=== PATIENT | female | born 1985 | race African-American/Black ===

== ENCOUNTER 2017-01-04 13:32 | Inpatient (IN) | payer OTHER ==
[2017-01-04] MEDS ORDERED: Oxytocin in LR* 20 UNITS/1,000 ML BAG IVPB SCH (23:45)
[2017-01-05] MEDS ORDERED: Oxytocin in LR* 20 UNITS/1,000 ML BAG IVPB ONE (00:11)
[2017-01-05 00:41] LABS: Hematocrit 30 % (35-47); Hemoglobin 9.8 g/dl (12.0-16.0); Mean Corpuscular HGB Conc 32 g/dl (31-36); Mean Corpuscular Hemoglobin 27 pg (27-31); Mean Corpuscular Volume 84 fL (80-97); Mean Platelet Volume 9 um3 (7.4-10.4); Red Blood Count 3.64 10^6/ul (4.0-5.4); Red Cell Distribution Width 15 % (10.5-15); White Blood Count 11.2 10^3/ul (3.5-10.8)
[2017-01-05] MEDS ORDERED: fentaNYL* 50 MCG/ML 2 ML VIAL (100 MCG VIAL) ONE (01:47)
[2017-01-05] MEDS ORDERED: fentaNYL* 50 MCG/ML 2 ML VIAL (100 MCG VIAL) IV SLOW PU ONE (01:55)
[2017-01-05] MEDS ORDERED: Dibucaine 1% 28.35 GM TUBE PR PRN (03:31)
[2017-01-05] MEDS ORDERED: Witch Hazel PAD* JAR TOPICAL PRN (03:31)
[2017-01-05] MEDS ORDERED: Acetaminophen TAB* 325 MG PO PRN (03:31)
[2017-01-05] MEDS ORDERED: Ibuprofen TAB* 600 MG ONE (03:58)
[2017-01-05] MEDS: Ibuprofen TAB* 600 MG PO PRN ×3 (04:00→20:11)
[2017-01-05] MEDS ORDERED: Oxytocin in LR* 20 UNITS/1,000 ML BAG IVPB SCH (04:00)
[2017-01-05] MEDS: oxyCODONE/Acetamin 5/325 MG* TAB PO PRN (04:56)
[2017-01-05] MEDS: Docusate CAP* 100 MG PO SCH ×3 (09:21→20:11)
[2017-01-05] MEDS ORDERED: Phenylephrine IV* 40 MCG/ML 10 ML SYRINGE ONE (13:51)
[2017-01-05] MEDS: Ferrous Gluconate TAB* 324 MG TAB PO SCH (20:11)
[2017-01-06] MEDS: Ibuprofen TAB* 600 MG PO PRN ×3 (03:53→21:46)
[2017-01-06] MEDS: Docusate CAP* 100 MG PO SCH ×3 (08:30→21:46)
[2017-01-06] MEDS: Ferrous Gluconate TAB* 324 MG TAB PO SCH ×2 (08:30→21:46)
[2017-01-06 08:38] LABS: Hematocrit 28 % (35-47); Hemoglobin 9.1 g/dl (12.0-16.0); Mean Corpuscular HGB Conc 33 g/dl (31-36); Mean Corpuscular Hemoglobin 28 pg (27-31); Mean Corpuscular Volume 84 fL (80-97); Mean Platelet Volume 9 um3 (7.4-10.4); Red Blood Count 3.28 10^6/ul (4.0-5.4); Red Cell Distribution Width 15 % (10.5-15); White Blood Count 10.4 10^3/ul (3.5-10.8)
[2017-01-06] MEDS: oxyCODONE/Acetamin 5/325 MG* TAB PO PRN (17:43)
[2017-01-07] MEDS: Ibuprofen TAB* 600 MG PO PRN (06:26)
[2017-01-07] MEDS: oxyCODONE/Acetamin 5/325 MG* TAB PO PRN (06:27)
[2017-01-07] MEDS: Docusate CAP* 100 MG PO SCH (09:15)
[2017-01-07] MEDS: Ferrous Gluconate TAB* 324 MG TAB PO SCH (09:15)
[2017-01-07 09:20] VITALS: BP 122/70
== END 2017-01-07 12:49 | disposition home or self-care (01) | DRG 560 ==
LOC: MCHOBOUT 13:32 → MCHOB 18:58
PROVIDERS: ADMIT Nurse Practitioner; ATTEND Nurse Practitioner
PROC: 10E0XZZ Delivery of Products of Conception, External Approach (ICD-10-PCS; principal; 2017-01-05)
PROC: 0HQ9XZZ Repair Perineum Skin, External Approach (ICD-10-PCS; 2017-01-05)
DX: O70.0 First degree perineal laceration during delivery (principal); Z37.0 Single live birth; Z3A.38 38 weeks gestation of pregnancy
CPT/HCPCS: 36415; 85025; 86850; 86900; 86901; A9270-GY; J3010

== ENCOUNTER → 2017-04-28 17:56 | Emergency (ER) | payer MEDICAID, OTHER ==
[2017-04-28 18:21] VITALS: BP 119/81
--- NOTE | 2017-04-28 19:27 | ED ---
Throat Pain/Nasal Congestion - HPI Summary HPI Summary: 31F presents with itchy watery eyes for 4 days. She had crusted the one eye and then it spread to another. Her children have similar symptoms. She denies any change in vision. She does not wear contacts. She denies any other symptoms. - History of Current Complaint Chief Complaint: EDEyeProblem Time Seen by Provider: 04/28/17 18:24 - Allergies/Home Medications Allergies/Adverse Reactions: Allergies Allergy/AdvReac Type Severity Reaction Status Date / Time Iohexol [From Omnipaque] Allergy Mild Hives Verified 01/04/17 14:17 PMH/Surg Hx/FS Hx/Imm Hx Endocrine/Hematology History: Denies: Hx Diabetes, Hx Thyroid Disease Cardiovascular History: Denies: Hx Aneurysm, Hx Hypertension Respiratory History: Denies: Hx Asthma, Hx Chronic Obstructive Pulmonary Disease (COPD) GI History: Denies: Hx Ulcer - Surgical History Surgery Procedure, Year, and Place: GALL BLADDER REMOVED 2013 Infectious Disease History: No Infectious Disease History: Denies: Hx Clostridium Difficile, Hx Hepatitis, Hx Human Immunodeficiency Virus (HIV), Hx of Known/Suspected MRSA, Hx Shingles, Hx Tuberculosis, Hx Known/ Suspected VRE, Hx Known/Suspected VRSA, History Other Infectious Disease, Traveled Outside the [place] in Last 30 Days - Family History Known Family History: Positive: Cardiac Disease, Hypertension, Diabetes - Social History Alcohol Use: None Alcohol Amount: not recently Substance Use Type: Reports: None Smoking Status (MU): Never Smoked Tobacco Review of Systems Negative: Fever Positive: Drainage, Erythema Negative: Chest Pain Negative: Shortness Of Breath All Other Systems Reviewed And Are Negative: Yes Physical Exam Triage Information Reviewed: Yes Vital Signs On Initial Exam: Initial Vitals Temp Pulse Resp BP Pulse Ox 97.9 F 78 16 119/81 98 04/28/17 18:15 04/28/17 18:15 04/28/17 18:15 04/28/17 18:15 04/28/17 18:15 Vital Signs Reviewed: Yes Appearance: Positive: Well-Appearing Skin: Positive: Warm, Dry Head/Face: Positive: Normal Head/Face Inspection Eyes: Positive: EOMI, DAQUAN, Conjunctiva Inflammed, Discharge - yellow ENT: Positive: Normal ENT inspection, Pharynx normal, TMs normal Respiratory/Lung Sounds: Positive: Clear to Auscultation, Breath Sounds Present Cardiovascular: Positive: Normal, RRR Diagnostics - Vital Signs Vital Signs Temp Pulse Resp BP Pulse Ox 04/28/17 18:15 97.9 F 78 16 119/81 98 - Laboratory Lab Statement: Any lab studies that have been ordered have been reviewed, and results considered in the medical decision making process. EENT Course/Dx - Course Course Of Treatment: 31F presents with itchy watery eyes for 4 days. She had crusted the one eye and then it spread to another. Her children have similiar symptoms. She denies any change in vision. She does not wear contacts. She denies any other symptoms. patient has injected conjunctiva with yellow discharge. will treat with erythromycin as adi was out of polytrim. patient understands and agrees with plan - Differential Diagnoses Differential Diagnoses: Conjunctivitis, Corneal Abrasion, Foreign Body - Diagnoses Provider Diagnoses: Conjunctivitis Discharge - Discharge Plan Condition: Good Disposition: HOME Prescriptions: Polymyx/Trimethoprim OPTH* [Polytrim OPHTH*] 1 drop BOTH EYES Q3H #1 btl Patient Education Materials: Conjunctivitis (ED) Referrals: Nata Ortiz MD [Primary Care Provider] - Additional Instructions: Place 1 drop in eye four times a day for 7 days Wash hands after touching eye Return to ED if develop any new or worsening symptoms
== END | disposition home or self-care (01) ==
LOC: ED 17:56
DX: H10.9 Unspecified conjunctivitis (principal)
CPT/HCPCS: 99281

== ENCOUNTER 2017-05-05 09:15 | Emergency (ER) | payer MEDICAID ==
[2017-05-05 09:19] VITALS: BP 137/92
[2017-05-05] MEDS ORDERED: oxyCODONE/Acetamin 5/325 MG* TAB PO ONE ×2 (10:08)
[2017-05-05] MEDS ORDERED: Tetan/Diph/Pertus SYR(Tdap)* 0.5 ML SYR(BOOSTRIX) use SYR IM ONE (10:09)
--- NOTE | 2017-05-05 10:15 | ED ---
Throat Pain/Nasal Congestion - HPI Summary HPI Summary: Pt here w/ Lt eye injury last night - daughter accidentally poked her in the eye - pain interfered with sleep last night. Eyes has been watering, sensitive to light and pain with opening. She is unsure if vision has changes as she's very anxious about the pain. Tried ibuprofen w/o relief prior to arrival. She is unsure of her last tetanus vaccine and nothing in record here. Does not wear contact lenses. - History of Current Complaint Chief Complaint: EDEyeProblem Time Seen by Provider: 05/05/17 09:46 Hx Obtained From: Patient - Allergies/Home Medications Allergies/Adverse Reactions: Allergies Allergy/AdvReac Type Severity Reaction Status Date / Time Iohexol [From Omnipaque] Allergy Mild Hives Verified 01/04/17 14:17 PMH/Surg Hx/FS Hx/Imm Hx Previously Healthy: Yes Endocrine/Hematology History: Denies: Hx Anticoagulant Therapy, Hx Blood Disorders, Hx Diabetes, Hx Thyroid Disease, Autoimmune Disease Cardiovascular History: Denies: Hx Aneurysm, Hx Hypertension Respiratory History: Denies: Hx Asthma, Hx Chronic Obstructive Pulmonary Disease (COPD) GI History: Denies: Hx Ulcer Psychiatric History: Reports: Hx Anxiety - Surgical History Surgery Procedure, Year, and Place: GALL BLADDER REMOVED 2013 - Immunization History Immunizations Up to Date: Unable to Obtain/Confirm Infectious Disease History: No Infectious Disease History: Denies: Hx Clostridium Difficile, Hx Hepatitis, Hx Human Immunodeficiency Virus (HIV), Hx of Known/Suspected MRSA, Hx Shingles, Hx Tuberculosis, Hx Known/ Suspected VRE, Hx Known/Suspected VRSA, History Other Infectious Disease, Traveled Outside the [place] in Last 30 Days - Family History Known Family History: Positive: Cardiac Disease, Hypertension, Diabetes - Social History 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 Lives: With Family Alcohol Use: None Alcohol Amount: not recently Hx Substance Use: No Substance Use Type: Reports: None Hx Tobacco Use: No Smoking Status (MU): Never Smoked Tobacco Review of Systems Eyes: Other - see HPI Negative: Vomiting, Nausea Positive: no symptoms reported Positive: Headache - from eye pain Positive: Anxious All Other Systems Reviewed And Are Negative: Yes Physical Exam Triage Information Reviewed: Yes Vital Signs On Initial Exam: Initial Vitals Temp Pulse Resp BP Pulse Ox 97.1 F 86 20 137/92 96 05/05/17 09:17 05/05/17 09:17 05/05/17 09:17 05/05/17 09:17 05/05/17 09:17 Vital Signs Reviewed: Yes Appearance: Positive: Well-Appearing, Well-Nourished, Pain Distress - tearful, apprehensive to allow eye exam, anxious Skin: Positive: Warm, Dry Head/Face: Positive: Normal Head/Face Inspection Eyes: Positive: EOMI, DAQUAN, Conjunctiva Inflammed - mild, Discharge - watery, Other: - fluouresceine eye test reveals a 3mm abrasion within central cornea - no linear abrasions observed and no FB obsreved - neg Siedel's sign; no purulent d/c ENT: Positive: Normal ENT inspection, Hearing grossly normal, Pharynx normal Respiratory/Lung Sounds: Positive: Breath Sounds Present Cardiovascular: Positive: Normal Neurological: Positive: CN Intact II-III Psychiatric: Positive: Anxious Procedures - Eye Procedure Alcaine Drops Administered: No - tetracaine Eye Irrigated w/ Saline (ccs): 3 - saline Antibiotic Ointment/Drps Admin: left eye - gentamycin 0.3% Diagnostics - Vital Signs Vital Signs Temp Pulse Resp BP Pulse Ox 05/05/17 09:17 97.1 F 86 20 137/92 96 - Laboratory Lab Statement: Any lab studies that have been ordered have been reviewed, and results considered in the medical decision making process. Re-Evaluation - Re-Evaluation First Eval Change: Improved - s/p tetracaine eye drops EENT Course/Dx - Diagnoses Provider Diagnoses: Left corneal abrasion Discharge - Discharge Plan Condition: Stable Disposition: HOME Prescriptions: Diclofenac Sodium (Ophth) [Diclofenac Sodium] 0.1 % OP Q6HR PRN #1 bottle PRN Reason: Pain Gentamicin 0.3% OPTH.OINT* 1 applic .SEE ORDER TID #1 tube Patient Education Materials: Corneal Abrasion (ED) Forms: *Work Release Referrals: Олег Ni MD [Medical Doctor] - Additional Instructions: You have a corneal abrasion. It is important that you keep this eye closed and use antibiotic eye ointment to aid in healing and prevent infection. This should heal in the next 24-48 hours. You may use topical eye drops for pain relief (sent to pharmacy). You may take oral pain pill (percocet) before bed tonight if pain interferes with sleep. Follow-up with eye doctor tomorrow - contact information included here - call today to schedule appointment.
[2017-05-05] MEDS: GENTAMICIN 0.1% TOPICAL ONE ×2 (10:58→11:44)
[2017-05-05] MEDS ORDERED: Gentamicin 0.3% OPTH.OINT* 3.5 GM TUBE ONE (11:00)
== END 2017-05-05 11:08 | disposition home or self-care (01) ==
LOC: ED 09:15
DX: S05.02XA Injury of conjunctiva and corneal abrasion without foreign body, left eye, initial encounter (principal); R51 Headache; F41.9 Anxiety disorder, unspecified; W50.0XXA Accidental hit or strike by another person, initial encounter; Y93.9 Activity, unspecified; Y92.89 Other specified places as the place of occurrence of the external cause; Y99.9 Unspecified external cause status
CPT/HCPCS: 90471; 90715; 99282; A9270-GY

== ENCOUNTER 2018-09-12 15:32 | Emergency (ER) | payer OTHER ==
--- NOTE | 2018-09-12 15:49 | ED ---
Abdominal Pain/Female - HPI Summary HPI Summary: A 33 y/o F presents to ED with c/o severe constipation ongoing for the past few months. Pt states she saw her PCP about this issue and was referred to a GI specialist at [facility] but she isn't scheduled to see them until next week. She states feeling like she is going to "puke up her bowels." Her last BM was yesterday afternoon after taking one dose of magnesium citrate. She states when she does have a BM it feels incomplete. She feels the urge to push but is worried about it. Associated sx: nausea, bloating, pressure on bilat sides, she feels faint like she may pass out. She has tried an at-home enema, laxatives, Miralax (1 dose), a high fiber diet of mostly vegetables. She says she hydrates regularly and is not a heavy coffee drinker. She says her menstrual cycle is normal. Denies taking pain narcotics. She notes its common for her (and other family members) to only have a BM 2x a month. 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 - History of Current Complaint Chief Complaint: EDAbdPain Stated Complaint: CONSTIPATION Time Seen by Provider: 09/12/18 15:39 Hx Obtained From: Patient Hx Last Menstrual Period: 04/03/16 Onset/Duration: Gradual Onset, Lasting Weeks, Still Present Timing: Constant Severity Initially: Moderate Severity Currently: Severe Pain Intensity: 8 Pain Scale Used: 0-10 Numeric Location: Other - bilat sides of abd Character: Other: - pressure Associated Signs and Symptoms: Positive: Nausea, Other: - pos: feeling "faint", bloating Allergies/Adverse Reactions: Allergies Allergy/AdvReac Type Severity Reaction Status Date / Time iohexol Allergy Hives Verified 09/12/18 15:37 Home Medications: Home Medications Etonogest/Eth.estradiol (Nf) [Nuvaring Vaginal Ring] 1 each VAGINAL MONTHLY [History Confirmed 09/12/18] Folic Acid/Multivit-Min/Lutein [Multi-Vitamin Gummies] 1 chw PO DAILY 09/12/18 [ History Confirmed 09/12/18] Sennosides/Docusate Sodium [Lax Stool Softener-Senna Tab] 1 tab PO DAILY PRN [History Confirmed 09/12/18] Sennosides/Docusate Sodium [Stool Softener/Laxative 50-8.6 mg] 1 tab PO DAILY PRN 09/12/18 [History Confirmed 09/12/18] Sodium Phosphate ADULT ENEMA* [Fleet Enema*] [address] DAILY PRN 09/12/18 [ History Confirmed 09/12/18] PMH/Surg Hx/FS Hx/Imm Hx Previously Healthy: No Endocrine/Hematology History: Denies: Hx Anticoagulant Therapy, Hx Blood Disorders, Hx Diabetes, Hx Thyroid Disease Cardiovascular History: Denies: Hx Aneurysm, Hx Hypertension Respiratory History: Denies: Hx Asthma, Hx Chronic Obstructive Pulmonary Disease (COPD) GI History: Denies: Hx Ulcer Psychiatric History: Reports: Hx Anxiety - Surgical History Surgery Procedure, Year, and Place: GALL BLADDER REMOVED 2013 Infectious Disease History: Unable to Obtain/Confirm Infectious Disease History: Denies: Hx Clostridium Difficile, Hx Hepatitis, Hx Human Immunodeficiency Virus (HIV), Hx of Known/Suspected MRSA, Hx Shingles, Hx Tuberculosis, Hx Known/ Suspected VRE, Hx Known/Suspected VRSA, History Other Infectious Disease, Traveled Outside the [place] in Last 30 Days - Family History Known Family History: Positive: Cardiac Disease, Hypertension, Diabetes Family History: neg: IBS, Crohns - Social History Occupation: Unemployed Lives: With Family Alcohol Use: None Alcohol Amount: not recently Hx Substance Use: No Substance Use Type: Reports: None Hx Tobacco Use: No Smoking Status (MU): Never Smoked Tobacco Review of Systems Negative: Fever, Chills Negative: Erythema Negative: Sore Throat Negative: Chest Pain Negative: Shortness Of Breath, Cough Positive: Abdominal Pain - "pressure" on bilat sides, Nausea, Other - pos: constipation, bloating. Negative: Vomiting Negative: dysuria, hematuria Negative: Myalgia, Edema Negative: Rash Neurological: Other - pos: feeling "faint"; neg: dizziness All Other Systems Reviewed And Are Negative: Yes Physical Exam - Summary Physical Exam Summary: Constitutional: Well-developed, Well-nourished, Alert. (-) Distressed Skin: Warm, Dry HENT: Normocephalic; Atraumatic Eyes: Conjunctiva normal Neck: Musculoskeletal ROM normal neck. (-) JVD, (-) Stridor, (-) Tracheal deviation Cardio: Rhythm regular, rate normal, Heart sounds normal; Intact distal pulses; The pedal pulses are 2+ and symmetric. Radial pulses are 2+ and symmetric. (-) Murmur Pulmonary/Chest wall: Effort normal. (-) Respiratory distress, (-) Wheezes, (-) Rales Abd: Soft, (-) epigastric tenderness, (-) Distension, (-) Guarding, (-) Rebound Musculoskeletal: (-) Edema Lymph: (-) Cervical adenopathy Neuro: Alert, Oriented x3 Psych: Mood and affect Normal Triage Information Reviewed: Yes Vital Signs On Initial Exam: Initial Vitals Temp Pulse Resp BP Pulse Ox 97.7 F 82 16 135/98 100 09/12/18 15:33 09/12/18 15:33 09/12/18 15:33 09/12/18 15:33 09/12/18 15:33 Vital Signs Reviewed: Yes Diagnostics - Vital Signs Vital Signs Temp Pulse Resp BP Pulse Ox 09/12/18 15:33 97.7 F 82 16 135/98 100 - Laboratory Lab Statement: Any lab studies that have been ordered have been reviewed, and results considered in the medical decision making process. Abdominal Pain Fem Course/Dx - Course Course Of Treatment: Pt is a 33 y/o F presenting with ongoing severe constipation. She is scheduled to see a GI specialist at [facility] next week. She states feeling like she is going to "puke up her bowels." She did have a BM yesterday after a dose of magnesium citrate, but did not completely void her bowels. Pt has been non-compliant with her laxitives. Advised to discontinue all cheese intake, and recommended other dietary changes. - Diagnoses Provider Diagnoses: Constipation Discharge - Sign-Out/Discharge Documenting (check all that apply): Patient Departure - DC - Discharge Plan Condition: Stable Disposition: HOME Prescriptions: Magnesium CITRATE* [Citrate of Magnesia*] 150 ml PO BID #3 btl Polyethylene Glycol 3350* [Miralax*] 17 gm PO DAILY PRN #7 packet PRN Reason: Constipation Patient Education Materials: Polyethylene Glycol 3350 (By mouth), Magnesium Citrate (By mouth), Constipation (ED) Referrals: Nata Ortiz MD [Primary Care Provider] - 2 Days Additional Instructions: As we discussed: Add fruit to your diet. Continue eating vegetables. Drink prune and/or apple juice. Stop eating cheese. Follow up with your primary care provider in 2 days. Return to the emergency department for changing or worsening symptoms. - Attestation Statements Document Initiated by Scribe: Yes Documenting Scribe: Meagan Baig Provider For Whom Scribe is Documenting (Include Credential): Dr. Rahul Luna MD Scribe Attestation: IMeagan, scribed for Dr. Rahul Luna MD on 09/12/18 at 1701.
[2018-09-12] MEDS ORDERED: Polyethylene Glycol 3350* 17 GM PACKET PO ONE (15:52)
[2018-09-12] MEDS ORDERED: Ondansetron ODT TAB* 4 MG PO ONE (15:53)
[2018-09-12 17:13] VITALS: BP 122/97
== END 2018-09-12 17:13 | disposition home or self-care (01) ==
LOC: ED 15:32
DX: K59.00 Constipation, unspecified (principal); R10.9 Unspecified abdominal pain; R11.0 Nausea
CPT/HCPCS: 99283; A9270-GY

== ENCOUNTER 2018-09-18 10:06 | Emergency (ER) | payer OTHER ==
--- NOTE | 2018-09-18 10:24 | ED ---
Abdominal Pain/Female - HPI Summary HPI Summary: This patient is a 33 year old F presenting to [facility] with a chief complaint of ABD pain that began a few months ago but has gotten worse. Patient states she was recently seen in the ED and discharged with a laxative that she has been taking without relief. She is concerned because no imaging was done. She states it started with ABD pressure and constipation. Since then the pain has increased , especially in the LLQ, and it now radiates into her back. She has passed stool since her last visit but did not feel like it was a full void, last BM was 3 days ago. The patient rates the pain 8/10 in severity. Symptoms aggravated by eating. Patient reports nausea and trouble passing gas. Patient denies vomiting, vaginal discharge, and vaginal bleeding. Pt has taken magnesium citrate and miralax. Hx cholecystectomy. - History of Current Complaint Chief Complaint: EDAbdPain Stated Complaint: ABD PAIN Time Seen by Provider: 09/18/18 10:17 Hx Obtained From: Patient Hx Last Menstrual Period: 04/03/16 Onset/Duration: Lasting Days, Still Present, Worse Since Timing: Constant Severity Initially: Mild Severity Currently: Severe Pain Intensity: 8 Pain Scale Used: 0-10 Numeric Location: Diffuse Radiates: Yes Radiates to: Back Aggravating Factor(s): Food Associated Signs and Symptoms: Positive: Nausea. Negative: Vaginal Bleeding, Vaginal Discharge, Vomiting Allergies/Adverse Reactions: Allergies Allergy/AdvReac Type Severity Reaction Status Date / Time Iodinated Contrast- Oral and Allergy Hives Verified 09/18/18 11:15 IV Dye iohexol Allergy Hives Verified 09/18/18 10:15 PMH/Surg Hx/FS Hx/Imm Hx Endocrine/Hematology History: Denies: Hx Anticoagulant Therapy, Hx Blood Disorders, Hx Diabetes, Hx Thyroid Disease Cardiovascular History: Denies: Hx Aneurysm, Hx Hypertension Respiratory History: Denies: Hx Asthma, Hx Chronic Obstructive Pulmonary Disease (COPD) GI History: Denies: Hx Crohn's Disease, Hx Gastrointestinal Bleed, Hx Hiatal Hernia, Hx Irritable Bowel, Hx Ulcer Psychiatric History: Reports: Hx Anxiety - Surgical History Surgery Procedure, Year, and Place: GALL BLADDER REMOVED 2013 Infectious Disease History: No Infectious Disease History: Denies: Hx Clostridium Difficile, Hx Hepatitis, Hx Human Immunodeficiency Virus (HIV), Hx of Known/Suspected MRSA, Hx Shingles, Hx Tuberculosis, Hx Known/ Suspected VRE, Hx Known/Suspected VRSA, History Other Infectious Disease, Traveled Outside the [place] in Last 30 Days - Family History Known Family History: Positive: Cardiac Disease, Hypertension, Diabetes Family History: neg: IBS, Crohns - Social History Alcohol Use: None Alcohol Amount: not recently Hx Substance Use: No Substance Use Type: Reports: None Hx Tobacco Use: No Smoking Status (MU): Never Smoked Tobacco Review of Systems Gastrointestinal: Other - trouble passing gas Positive: Abdominal Pain, Nausea, Other - constipation . Negative: Vomiting, Diarrhea Genitourinary: Negative - vaginal bleeding Negative: discharge All Other Systems Reviewed And Are Negative: Yes Physical Exam - Summary Physical Exam Summary: Appearance: Well appearing, no pain distress Skin: warm, dry, reflects adequate perfusion Head/face: normal Eyes: EOMI, DAQUAN ENT: normal Neck: supple, non-tender Respiratory: CTA, breath sounds present Cardiovascular: RRR, pulses symmetrical Abdomen: TTP in the LLQ and LUQ Bowel: present Musculoskeletal: normal, strength/ROM intact Neuro: normal, sensory motor intact, A&Ox3 Rectal: No fecal impaction Triage Information Reviewed: Yes Vital Signs On Initial Exam: Initial Vitals Temp Pulse Resp BP Pulse Ox 98.1 F 81 17 130/80 100 09/18/18 10:09 09/18/18 10:09 09/18/18 10:09 09/18/18 10:09 09/18/18 10:09 Vital Signs Reviewed: Yes Diagnostics - Vital Signs Vital Signs Temp Pulse Resp BP Pulse Ox 09/18/18 10:09 98.1 F 81 17 130/80 100 - Laboratory Result Diagrams: 09/18/18 10:37 09/18/18 10:37 Lab Statement: Any lab studies that have been ordered have been reviewed, and results considered in the medical decision making process. - CT CT ABD/ Pelvis CT Interpretation Completed By: Radiologist - No obstructive uropathy. No other masses or fluid collections are identified. ED physician has reviewed this radiology report. Abdominal Pain Fem Course/Dx - Course Course Of Treatment: This patient is a 33 year old female with worsening ABD pain that began a month or so ago. She was seen in the ED a few days ago but was concerned because no imaging was done. Patient will be discharged follow up from GI and PCP. The patient is agreeable with this plan. Blood work and UA obtained. CT ABD/Pelvis reveals, per radiologist, No obstructive uropathy. No other masses or fluid collections are identified. Patient will be discharged follow up from GI and PCP. The patient is agreeable with this plan. - Diagnoses Differential Diagnosis: Positive: Constipation, Diverticulitis, Renal Colic, Urinary Tract Infection Provider Diagnoses: Abdominal pain, Constipation Discharge - Sign-Out/Discharge Documenting (check all that apply): Patient Departure - Discharge Plan Condition: Stable Disposition: HOME Patient Education Materials: Constipation (ED), High Fiber Diet (ED), Acute Abdominal Pain (ED) Referrals: [facility] [place] PHYSICIAN REFERRAL [Outside] Nata Ortiz MD [Primary Care Provider] - Additional Instructions: Please keep you appointment with GI this week. Follow up with your primary care physician in 1-3 days. RETURN TO THE EMERGENCY DEPARTMENT FOR CHANGING OR WORSENING SYMPTOMS. - Billing Disposition and Condition Condition: STABLE Disposition: Home - Attestation Statements Document Initiated by Scribe: Yes Documenting Scribe: Anderson Echavarria Provider For Whom Scribe is Documenting (Include Credential): Kulwant Hamilton MD Scribe Attestation: Anderson Siddiqui , scribed for Kulwant Hamilton MD on 09/18/18 at 1324. Scribe Documentation Reviewed: Yes Provider Attestation: The documentation as recorded by the Anderson baltazar accurately reflects the service I personally performed and the decisions made by Kulwant aruajo MD
[2018-09-18] MEDS ORDERED: NS 0.9% 1000 ML* 1,000 ML IV ONE (10:26)
[2018-09-18 10:49] LABS: ABS Basophils 0.1 10^3/ul (0-0.2); ABS Eosinophils 0.1 10^3/ul (0-0.6); ABS Lymphocytes 2.8 10^3/ul (1.0-4.8); ABS Monocytes 0.3 10^3/ul (0-0.8); ABS Neutrophils 2.1 10^3/ul (1.5-7.7); ABS Nucleated RBC 0 10^3/ul; Eosinophil % 1.6 % (0-6); Hematocrit 39 % (35-47); Hemoglobin 12.6 g/dl (12.0-16.0); Lymphocyte % 52.4 % (25-47); Mean Corpuscular HGB Conc 33 g/dl (31-36); Mean Corpuscular Hemoglobin 28 pg (27-31); Mean Corpuscular Volume 84 fL (80-97); Mean Platelet Volume 8.5 fL (7.4-10.4); Nucleated Red Blood Cells % 0.1; Platelet Count 288 10^3/ul (150-450); Red Blood Count 4.58 10^6/ul (4.00-5.40); Red Cell Distribution Width 13 % (10.5-15); White Blood Count 5.3 10^3/ul (3.5-10.8)
[2018-09-18 10:58] LABS: INR 0.9 (0.77-1.02)
[2018-09-18 11:05] LABS: EGFR Non-African American 90.4 (>60)
[2018-09-18 11:40] LABS: Urine Appearance Clear; Urine Blood Negative (Negative); Urine Color Straw; Urine Ketones Negative (Negative); Urine Protein Negative (Negative); Urine Red Blood Cell 1+(3-5/hpf) (Absent); Urine Specific Gravity 1.004 (1.010-1.030); Urine Urobilinogen Negative (Negative); Urine White Blood Cell 1+(6-10/hpf) (Absent)
[2018-09-18] MEDS ORDERED: Sodium Phosphate ADULT ENEMA* 118 ml bottle PR ONE (12:11)
[2018-09-18 13:16] VITALS: BP 115/82
--- NOTE | 2018-09-21 08:32 | ED ---
Progress - Progress Note Progress Note: Patient's final urine culture reveals 50-75,000 Escherichia coli. Patient had presented with abdominal pain and constipation and was discharged with laxatives and a GI follow-up. Upon speaking to patient, she reports she is moving her bowels easier with the mag citrate and MiraLAX however she still has abdominal discomfort and plans to follow through with her GI appointment this week. Furthermore she admits to a history of UTI's and was recently seen at her primary care office 2 weeks ago. She was diagnosed with bacterial vaginosis and given anbx vaginal suppositories which seemed to have helped her vaginal symptoms although she reports she may have some lingering or other symptoms remnant of a UTI (she is unable to specify and denies dysuria, urinary frequency, urinary urgency). She admits to LBP but reports this is constant and not new w/ her current ab sx. She prefers to start treatment for UTI today versus waiting to repeat UA through her PCP. Sensitivities indicate ciprofloxacin is effective so prescribed this for 3 days to Jp Smith. Patient advised to follow-up with GI as initially scheduled and report symptoms after starting antibiotic in the event that her symptoms are actually UTI. She is also aware of danger signs and symptoms of when to return the emergency Department. Course/Dx - Course Course Of Treatment: This patient is a 33 year old female with worsening ABD pain that began a month or so ago. She was seen in the ED a few days ago but was concerned because no imaging was done. Patient will be discharged follow up from GI and PCP. The patient is agreeable with this plan. Blood work and UA obtained. CT ABD/Pelvis reveals, per radiologist, No obstructive uropathy. No other masses or fluid collections are identified. Patient will be discharged follow up from GI and PCP. The patient is agreeable with this plan. - Diagnoses Provider Diagnoses: Abdominal pain, Constipation Discharge - Sign-Out/Discharge Documenting (check all that apply): Post-Discharge Follow Up - Discharge Plan Condition: Stable Disposition: HOME Patient Education Materials: Constipation (ED), High Fiber Diet (ED), Acute Abdominal Pain (ED) Referrals: [facility] [place] PHYS[facility]IAN REFERRAL [Outside] Nata Ortiz MD [Primary Care Provider] - Additional Instructions: Please keep you appointment with GI this week. Follow up with your primary care physician in 1-3 days. RETURN TO THE EMERGENCY DEPARTMENT FOR CHANGING OR WORSENING SYMPTOMS. - Billing Disposition and Condition Condition: STABLE Disposition: Home
== END 2018-09-18 13:15 | disposition home or self-care (01) ==
LOC: ED 10:06
DX: R10.9 Unspecified abdominal pain (principal); K59.00 Constipation, unspecified
CPT/HCPCS: 36415; 74176; 80053; 81003; 81015; 83605; 83690; 84702; 85025; 85610; 85730; 86140; 87077; 87086; 87186; 96360; 96361; 99283; A9270-GY

== ENCOUNTER 2019-08-27 02:20 | Emergency (ER) | payer OTHER ==
[2019-08-27] MEDS ORDERED: NS 0.9% 1000 ML** 1,000 ML IV ONE (02:29)
--- NOTE | 2019-08-27 02:33 | ED ---
Complex/Multi-Sys Presentation - HPI Summary HPI Summary: Patient is a 34 y/o F presenting to [facility] with complaints of left-sided body weakness, left arm numbness and left hand tingling. She reports that Sx onset around 0200 08/27/2019. She states that she has never had similar previous symptoms. Patient states that she has some "fuzziness" of her vision but otherwise reports no visual changes. She states "I'm scared I'm dying". Patient reports Hx of anxiety and depression but states that she has stopped taking her medications about two years ago. She states that she has been having pain at her chest as well and also reports that when she awoke at 0200 today, she had felt that her heart had "stopped beating" for a period of time and then began to race. She denies Hx of kidney issues. Home medications and allergies are reviewed. Abel lu called at 0234, provider evaluated patient at this time. Initial NIH obtained at 0226, patient brought to CT at 0228. 0242 - telestroke initiated. 0247 - radiologist called with CT interpretation. - History Of Current Complaint Hx Obtained From: Patient Onset/Duration: Lasting Minutes, Still Present Timing: Constant, Minutes Location: Pain At: - chest Associated Signs And Symptoms: Positive: Weakness - left sided, Chest Pain, Palpitations, Other - left arm numbness, left hand tingling - Allergies/Home Medications Allergies/Adverse Reactions: Allergies Allergy/AdvReac Type Severity Reaction Status Date / Time Iodinated Contrast Media Allergy Hives Verified 08/27/19 02:54 [Iodinated Contrast- Oral and IV Dye] iohexol Allergy Hives Verified 08/27/19 02:54 PMH/Surg Hx/FS Hx/Imm Hx Endocrine/Hematology History: Denies: Hx Anticoagulant Therapy, Hx Blood Disorders, Hx Diabetes, Hx Thyroid Disease Cardiovascular History: Denies: Hx Aneurysm, Hx Hypertension Respiratory History: Denies: Hx Asthma, Hx Chronic Obstructive Pulmonary Disease (COPD) GI History: Denies: Hx Crohn's Disease, Hx Gastrointestinal Bleed, Hx Hiatal Hernia, Hx Irritable Bowel, Hx Ulcer Psychiatric History: Reports: Hx Anxiety - Surgical History Surgery Procedure, Year, and Place: GALL BLADDER REMOVED 2013 Infectious Disease History: Denies: Hx Clostridium Difficile, Hx Hepatitis, Hx Human Immunodeficiency Virus (HIV), Hx of Known/Suspected MRSA, Hx Shingles, Hx Tuberculosis, Hx Known/ Suspected VRE, Hx Known/Suspected VRSA, History Other Infectious Disease - Family History Known Family History: Positive: Cardiac Disease, Hypertension, Diabetes Family History: neg: IBS, Crohns - Social History Alcohol Use: None Alcohol Amount: not recently Hx Substance Use: No Substance Use Type: Reports: None Hx Tobacco Use: No Smoking Status (MU): Never Smoked Tobacco Review of Systems Positive: Palpitations, Chest Pain Positive: Weakness - left sided , Numbness - left arm numbness, left hand tingling All Other Systems Reviewed And Are Negative: Yes Physical Exam - Summary Physical Exam Summary: Constitutional: Well-developed, Well-nourished, Alert. (-) Distressed Skin: Warm, Dry HENT: Normocephalic; Atraumatic Eyes: Conjunctiva normal Neck: Musculoskeletal ROM normal neck. (-) JVD, (-) Stridor, (-) Tracheal deviation Cardio: Rhythm regular, rate normal, Heart sounds normal; Intact distal pulses; Radial pulses are 2+ and symmetric. (-) Murmur Pulmonary/Chest wall: Effort normal. (-) Respiratory distress, (-) Wheezes, (-) Rales Abd: Soft, (-) tenderness, (-) Distension, (-) Guarding, (-) Rebound Musculoskeletal: (-) Edema Lymph: (-) Cervical adenopathy Neuro: Alert, Oriented x3, GCS 15, NIH 2. See scales for breakdown. Psych: Appears panicked. Triage Information Reviewed: Yes Vital Signs On Initial Exam: Initial Vitals Pulse Resp BP Pulse Ox 112 18 132/108 100 08/27/19 02:24 08/27/19 02:24 08/27/19 02:24 08/27/19 02:24 Vital Signs Reviewed: Yes - [place] Coma Scale Best Eye Response: 4 - Spontaneous Best Motor Response: 6 - Obeys Commands Best Verbal Response: 5 - Oriented Coma Scale Total: 15 Procedures - Sedation Patient Received Moderate/Deep Sedation with Procedure: No Diagnostics - Laboratory Result Diagrams: 08/27/19 02:49 08/27/19 02:49 Lab Statement: Any lab studies that have been ordered have been reviewed, and results considered in the medical decision making process. - Radiology CXR Radiology Interpretation Completed By: ED Physician Summary of Radiographic Findings: NO ACUTE PROCESS, PENDING OFFICIAL REPORT. - CT BRAIN CT CT Interpretation Completed By: Radiologist Summary of CT Findings: IMPRESSION: No acute intracranial process. No intracranial hemorrhage. If clinical. concern for acute infarction, MRI with diffusion weighted sequences or. intracranial CTA should be considered. THIS REPORT WAS REVIEWED BY DRDonavan - EKG 0243 Cardiac Rate: Tachycardia - rate of 112 BPM EKG Rhythm: Sinus Tachycardia Summary of EKG Findings: EKG showed sinus tachycardia with rate of 112 BPM, no STEMI. This EKG was reviewed and interpreted by Dr. Cullen. National Institutes Of Health - NIH Scale Level of Consciousness: Alert/Keenly Responsive Ask Patient the Month and His/Her Age: Both Correct Ask Pt to Open/Close Eyes and Pharmacist Aide/Release Non-Paretic Hand: Both Correctly Best Gaze (Only Horizontal Eye Movement): Normal Visual Field Testing: No Visual Loss Facial Paresis-Pt to Smile & Close Eyes or Grimace Symmetry: Normal/Symmetrical Motor Function - Right Arm: No Drift-Holds 10 Seconds Motor Function - Left Arm: No Drift-Holds 10 Seconds Motor Function - Right Leg: No Drift-Holds 10 Seconds Motor Function - Left Leg: No Drift-Holds 10 Seconds Limb Ataxia-Must be out of Proportion to Weakness Present: Absent Sensory (Use Pinprick to Test Arms/Legs/Trunk/Face): Severe to Total Loss Best Language (Describe Picture, Name Items): No Aphasia Dysarthria (Read Several Words): Normal Extinction and Inattention: No Abnormality Total Score: 2 Re-Evaluation - Re-Evaluation First Eval Re-Evaluation Time: 02:52 Comment: Patient is capable of ambulation and walked over to commode. Second Eval Re-Evaluation Time: 03:31 Comment: She states that she feels anxious. Patient states "I don't wanna ". Therapy and medication options were discussed. Complex Multi-Symp Course/Dx Course Of Treatment: Patient is here with a panic attack. Patient had a code Lu called from triage that she did have left-sided deficits and was admitted treatment window. Upon my evaluation, patient did have left-sided weakness and numbness but her exam was not consistent. Patient a stat CT head which showed no bleeding. Upon entrance the room, patient's symptoms are improving and she started crying and stating that she's having uncontrollable anxiety. Patient was not a TPA candidate in my opinion and this was run by [place] who agreed. Patient was monitored with improvement and resolution of her symptoms and was encouraged to follow-up with her primary care doctor to get restarted on her anxiety medication. - Diagnoses Provider Diagnoses: Panic attack During the Visit The Following Alert/Code Occurred: Code Jaimes - Code lu called at 0234, provider evaluated patient at this time. Initial NIH obtained at 0226, patient brought to CT at 0228. 0242 - telestroke initiated. 0247 - radiologist called with CT interpretation. - Physician Notifications Time Discussed With Above Provider: 03:06 Instructed by Provider To: Other - Patient's case was discussed with stroke attending, Dr. Montana, from [facility]. Dr. Montana states that the patient is not a TPA candidate and agrees that patient's Sx sound similar to a panic attack Discharge ED - Sign-Out/Discharge Documenting (check all that apply): Patient Departure - discharge - Discharge Plan Condition: Stable Disposition: HOME Patient Education Materials: Panic Attack (ED) Forms: *Work Release Referrals: [facility] [Outside] Nata Ortiz MD [Medical Doctor] - 3 Days Additional Instructions: Talk to your primary care physician about restarting your anxiety medications. Consider doing cognitive behavioral therapy. - Billing Disposition and Condition Condition: STABLE Disposition: Home - Attestation Statements Document Initiated by Tyree: Yes Documenting Beverleyibe: SARAH TATE Provider For Whom Tyree is Documenting (Include Credential): CHAMP CULLEN MD Scribe Attestation: SARAH Siddiqui, scribed for CHAMP CULLEN MD on 08/27/19 at 0608. Scribe Documentation Reviewed: Yes Provider Attestation: The documentation as recorded by the SARAH baltazar accurately reflects the service I personally performed and the decisions made by me, CHAMP CULLEN MD Status of Scribe Document: Viewed
[2019-08-27 02:55] LABS: ABS Basophils 0.1 10^3/ul (0-0.2); ABS Eosinophils 0.1 10^3/ul (0-0.6); ABS Lymphocytes 3.5 10^3/ul (1.0-4.8); ABS Monocytes 0.5 10^3/ul (0-0.8); ABS Neutrophils 2.5 10^3/ul (1.5-7.7); Hematocrit 36 % (35-47); Hemoglobin 12.1 g/dL (12.0-16.0); Lymphocyte % 52.9 %; Mean Corpuscular HGB Conc 34 g/dL (31-36); Mean Corpuscular Hemoglobin 28 pg (27-31); Mean Corpuscular Volume 83 fL (80-97); Platelet Count 295 10^3/uL (150-450); Red Blood Count 4.33 10^6 /uL (3.70-4.87); Red Cell Distribution Width 13 % (10-15); White Blood Count 6.7 10^3/uL (3.5-10.8)
[2019-08-27 03:03] LABS: Activated Partial Thrombo Time 27.3 seconds (26.0-38.0); INR 0.87 (0.82-1.09)
[2019-08-27 03:14] LABS: Albumin/Globulin Ratio 1.2 (1-3); BUN/Creatinine Ratio 13.2 (8-20); Calcium 9.2 mg/dL (8.6-10.3); EGFR African American 105.4 (>60); EGFR Non-African American 87.1 (>60); Globulin 3.3 g/dL (2-4); HDL Cholesterol 47.6 mg/dL; Potassium 3.6 mmol/L (3.5-5.0); Total Bilirubin 0.4 mg/dL (0.2-1.0); Total Protein 7.3 g/dL (6.4-8.9)
[2019-08-27 05:08] VITALS: BP 116/80
== END 2019-08-27 05:05 | disposition home or self-care (01) ==
LOC: ED 02:20
DX: F41.0 Panic disorder [episodic paroxysmal anxiety] (principal); F41.9 Anxiety disorder, unspecified; Z91.041 Radiographic dye allergy status
CPT/HCPCS: 36415; 70450; 71045; 80053; 80061; 84484; 85025; 85610; 85730; 93005; 96360; 96361; 99283

== ENCOUNTER 2019-09-27 17:01 | Emergency (ER) | payer OTHER ==
[2019-09-27 17:27] LABS: ABS Lymphocytes 2.5 10^3/ul (1.0-4.8); ABS Monocytes 0.3 10^3/ul (0-0.8); Eosinophil % 0.5 %; Hematocrit 38 % (35-47); Hemoglobin 12.6 g/dL (12.0-16.0); Lymphocyte % 35.9 %; Mean Corpuscular HGB Conc 33 g/dL (31-36); Mean Corpuscular Hemoglobin 28 pg (27-31); Mean Corpuscular Volume 83 fL (80-97); Platelet Count 294 10^3/uL (150-450); Red Blood Count 4.55 10^6 /uL (3.70-4.87); Red Cell Distribution Width 13 % (10-15); White Blood Count 6.9 10^3/uL (3.5-10.8)
[2019-09-27 17:31] LABS: INR 0.97 (0.82-1.09)
--- OUTSIDE RECORDS SUMMARY | 2019-09-27 17:34 | XMS REPORT | Continuity of Care Document ---
:1985 External Reference #:[id number] Author Name PATEL Calle (transmitted by agent of provider Doretha Gasca) Address [address] [place] [address] Care Team Providers Name Role Phone [facility] - Care Team Information Credit Product Analyst Mental Health Alexis Villanueva - Nurse Care Team Information Credit Product Analyst [phone] Practitioner Problems Active Problems Provider Date Adjustment disorder with depressed Nata Ortiz M.D. Onset: 07/28/2013 mood Obesity Nata Ortiz M.D. Onset: 07/28/2013 Amenorrhea Stefan Waters M.D. Onset: 01/17/2015 Abnormal cervical Papanicolaou smear [facility] Onset: with positive human papillomavirus deoxyribonucleic acid test Constipation Stephanie Flood NP Onset: 09/22/2018 Urinary tract infectious disease Stefan Waters M.D. Onset: 10/01/2018 Bacterial vaginosis Stephanie Flood NP Onset: 09/22/2018 Social History Type Date Description Comments Sex Unknown Tobacco Use Start: Unknown Never Smoked Cigarettes Smoking Status Reviewed: 08/30/19 Never Smoked Cigarettes ETOH Use Rarely consumes liquor Tobacco Use Start: Unknown Patient has never smoked Recreational Drug Use Denies Drug Use Exercise Type/Frequency tv work out Allergies, Adverse Reactions, Alerts Description No Known Drug Allergies Medications Active Medications SIG Qnty Indications Ordering Provider Date Hydroxyzine HCL take one tablet 30tabs F41.1 PATEL Calle 08/30/2019 25mg by mouth 2 x Tablets daily as needed Systane Ultra 1 drop each eye 8ml H53.30 PATEL Calle 08/30/2019 0.4-0.3% twice daily for Solution dry eyes History Medications No Active Medications Unknown 08/30/2019 - 08/30/2019 Medications Administered in Office Medication SIG Qnty Indications Ordering Provider Date PPD Injection Nurse Visit [place] 01/22/2015 PPD Injection Nurse Visit [place] 01/18/2015 Immunizations CPT Code Status Date Vaccine Lot # [id number] Given 09/24/2015 Influenza Virus Vaccine, Quadrivalent, Split, [id number] Preservative Free [id number] Given 07/28/2013 Flu Vaccine Split Virus Preservative Free For [id number] Indiv 3Yr Older Vital Signs Date Vital Result Comment 08/30/2019 2:42pm Height 62.5 inches 5'2.50" Weight 183.12 lb Heart Rate 84 /min BP Systolic 128 mmHg BP Diastolic 83 mmHg Body Temperature 98.6 F O2 % BldC Oximetry 93 % BMI (Body Mass Index) 33.0 kg/m2 09/22/2018 1:40pm Height 62.5 inches 5'2.50" Weight 172.00 lb Heart Rate 92 /min BP Systolic 125 mmHg BP Diastolic 82 mmHg Respiratory Rate 18 /min Body Temperature 97.8 F O2 % BldC Oximetry 98 % BMI (Body Mass Index) 31.0 kg/m2 Results Description No Information Available Procedures Description No Information Available Medical Devices Description No Information Available Encounters Description No Information Available Assessments Date Code Description Provider 08/30/2019 N64.4 Mastodynia PATEL Calle 08/30/2019 F41.1 Generalized anxiety disorder PATEL Calle 08/30/2019 F43.21 Adjustment disorder with depressed mood PATEL Calle 08/30/2019 H53.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 Will wait with diagnostic mammogram for now.Avoid caffeine intake.Please see Dr. Vaughan for further evaluation.Referral:Maria T Vaughan MD, Surgery,GeneralFollow up:4 iwqzjH55.1 Generalized anxiety disorderNew Medication:Hydroxyzine HCL 25 mg - take one tablet by mouth 2 x daily as aspgjhH71.21 Adjustment disorder with depressed moodReferral:Karen Mathias LCSW, Social ZaaoouC43.30 Unspecified disorder of binocular visionNew Medication:Systane Ultra 0.4-0.3 % - 1 drop each eye twice daily for dry eyesReferral:Bala Dorsey MD, [id number] Encounter for immunizationImmunizations/Injections:Influenza Virus Vaccine, Quadrivalent ( [id number]), Derived From Cell Functional Status Description No Information Available Mental Status Description No Information Available Referrals Refer to Dr Reason for Referral Status Appt Date Karen Mathias LCSW Created [address] [place] [address] [phone] Bala Dorsey MD Created [address] [place] [address] [phone] Maria T Vaughan MD Created [address] [facility] [address] [place] [address] [phone]
--- OUTSIDE RECORDS SUMMARY | 2019-09-27 17:34 | XMS REPORT | Continuity of Care Document ---
:1985 External Reference #:[id number] Author Name Maria T Vaughan MD (transmitted by agent of provider Lino Castellanos) Address [address] [facility] [address] [place] [address] Care Team Providers Name Role Phone [facility] - Care Team Information Teleradiologist Mental Health [facility] - General Care Team Information Teleradiologist [phone] Acute Care Hospital Problems Active Problems Provider Date Adjustment disorder with depressed Nata Ortiz M.D. Onset: 07/28/2013 mood Obesity Nata Ortiz M.D. Onset: 07/28/2013 Amenorrhea Stefan Waters M.D. Onset: 01/17/2015 Abnormal cervical Papanicolaou smear Kofi Diaz M.D.,[facility] Onset: with positive human papillomavirus deoxyribonucleic acid test Constipation Stephanie Flood NP Onset: 09/22/2018 Urinary tract infectious disease Stefan Waters M.D. Onset: 10/01/2018 Bacterial vaginosis Stephanie Flood NP Onset: 09/22/2018 Social History Type Date Description Comments Sex Unknown Tobacco Use Start: Unknown Never Smoked Cigarettes Smoking Status Reviewed: 09/07/19 Never Smoked Cigarettes ETOH Use Rarely consumes [...] 0.4-0.3% twice daily for Solution dry eyes Multi Vitamin 1 by mouth every Unknown Tablets day History Medications No Active Medications Unknown 08/30/2019 - 08/30/2019 Medications Administered in Office Medication SIG Qnty Indications Ordering Provider Date PPD Injection Nurse Visit [place] 01/22/2015 PPD Injection Nurse Visit [place] 01/18/2015 Immunizations CPT Code Status Date Vaccine Lot # [id number] Given 09/24/2015 Influenza Virus Vaccine, Quadrivalent, Split, [id number] Preservative Free [id number] Given 07/28/2013 Flu Vaccine Split Virus Preservative Free For [id number] Indiv 3Yr Older Vital Signs Date Vital Result Comment 09/07/2019 10:40am Height 62.5 inches 5'2.50" Weight 180.00 lb Heart Rate 68 /min BP Systolic Sitting 108 mmHg BP Diastolic Sitting 68 mmHg Respiratory Rate 18 /min Body Temperature 98.3 F BMI (Body Mass Index) 32.4 kg/m2 08/30/2019 2:42pm Height 62.5 inches 5'2.50" Weight 183.12 lb Heart Rate 84 /min BP Systolic 128 mmHg BP Diastolic 83 mmHg Body Temperature 98.6 F O2 % BldC Oximetry 93 % BMI (Body Mass Index) 33.0 kg/m2 Results Description No Information Available Procedures Description No Information Available Medical Devices Description No Information Available Encounters Type Date Location Provider Dx Diagnosis Office Visit 09/07[facility] Maria T Vaughan MD N64.4 Mastodynia 10:30a Of [facility] Office Visit 08/30/2019 [facility] Internal Medicine PATEL Calle N64.4 Mastodynia 2:40p - [facility] F41.1 Generalized anxiety disorder F43.21 Adjustment disorder with depressed mood H53.30 Unspecified disorder of binocular vision Z23 Encounter for immunization Assessments Date Code Description Provider 09/07/2019 N64.4 Mastodynia Maria T Vaughan MD 08/30/2019 N64.4 Mastodynia PATEL Calle 08/30/2019 F41.1 Generalized anxiety disorder PATEL Calle 08/30/2019 F43.21 Adjustment disorder with depressed mood PATEL Calle 08/30/2019 H53.30 Unspecified disorder of binocular vision PATEL Calle 08/30/2019 Z23 Encounter for immunization PATEL Calle Plan of Treatment Future Appointment(s):10/12/2019 10:00 am - Maria T Vaughan MD at [facility]10/04/2019 10:00 am - PATEL Calle at [facility] Internal Medicine - [facility]09/07/2019 - Maria T Vaughan MDN64.4 MastodyniaNew Xrays:US Breast Complete Bilateral, Ordered: 09/07/19MG Diagnostic Mammo Bilateral, Ordered: 09/07/19Follow up:6 weeks Functional Status Description No Information Available Mental Status Description No Information Available Referrals Refer to Reason for Referral Status Appt Date Karen Mathias LCSW [address] [place] [address] [phone] Bala Dorsey MD [address] [place] [id number] [phone] Maria T Vaughan MD Sent 09/07/2019 [address] [facility] [place] [address] [phone] [facility] [address] [place] [address] [phone]
[2019-09-27 17:41] LABS: Albumin 4.2 g/dL (3.2-5.2); BUN/Creatinine Ratio 17.3 (8-20); EGFR Non-African American 88.5 (>60); Globulin 4.2 g/dL (2-4); Potassium 3.6 mmol/L (3.5-5.0); Total Bilirubin 0.5 mg/dL (0.2-1.0); Total Protein 8.4 g/dL (6.4-8.9)
--- NOTE | 2019-09-27 20:46 | ED ---
HPI Chest Pain - HPI Summary HPI Summary: Patient is a 34 y/o F presenting to the ED for a chief complaint of intermittent diffuse chest pain that radiates to the left arm that began around 15:30 on 09/27/19. Patient is present with her daughter. Patient states she was at work when she had a sudden onset of diffuse chest pain that radiated to the left arm. She sat down after the chest pain began and had shortness of breath, paresthesia diffuse throughout the body, and generalized weakness. She describes the chest pain as a sharp sensation. Her symptoms have since resolved , but she has a rash on her right cheek. She also reports having suprapubic abdominal pain, chills, nasal congestion, and a productive cough with one episode of black streaks in the phlegm. Her nasal congestion and cough began before this episode of chest pain. Patient denies fever or changes in diet. She denies any aggravating or alleviating factors. Patient denies tobacco use or household exposure to tobacco. PMHx is significant for panic attacks, but she denies a history of asthma or respiratory problems. She was previously prescribed medication for her panic attacks and had relief of her anxiety, but she stopped taking the medications due to a concern for side effects from the medication. She takes CBD oil for her anxiety and panic attacks with some relief. - History of Current Complaint Chief Complaint: EDChestPainROMI Time Seen by Provider: 09/27/19 20:36 Hx Obtained From: Patient Hx Last Menstrual Period: 04/03/16 Onset/Duration: Atraumatic, Still Present Timing: Intermittent Initial Severity: Moderate Current Severity: Moderate Pain Intensity: 6 Pain Scale Used: 0-10 Numeric Chest Pain Location: Diffuse Chest Pain Radiates: Yes Chest Pain Radiates To:: Arm - Left Character: Sharp/Stabbing Aggravating Factor(s): Nothing Alleviating Factor(s): Nothing Associated Signs and Symptoms: Positive: Chest Pain, Tingling - Diffuse throughout the body, Weakness - Generalized, Shortness of Breath, Chills, Cough , Abdominal Pain - Suprapubic, Nasal Congestion. Negative: Fever - Allergy/Home Medications Allergies/Adverse Reactions: Allergies Allergy/AdvReac Type Severity Reaction Status Date / Time Iodinated Contrast Media Allergy Hives Verified 08/27/19 02:54 [Iodinated Contrast- Oral and IV Dye] iohexol Allergy Hives Verified 08/27/19 02:54 PMH/Surg Hx/FS Hx/Imm Hx Previously Healthy: Yes Endocrine/Hematology History: Denies: Hx Anticoagulant Therapy, Hx Blood Disorders, Hx Diabetes, Hx Thyroid Disease Cardiovascular History: Denies: Hx Aneurysm, Hx Hypertension Respiratory History: Denies: Hx Asthma, Hx Chronic Obstructive Pulmonary Disease (COPD) GI History: Denies: Hx Crohn's Disease, Hx Gastrointestinal Bleed, Hx Hiatal Hernia, Hx Irritable Bowel, Hx Ulcer Sensory History: Denies: Hx Legally Blind, Hx Deafness Opthamlomology History: Denies: Hx Legally Blind EENT History: Denies: Hx Deafness Psychiatric History: Reports: Hx Anxiety - Surgical History Surgical History: Yes Surgery Procedure, Year, and Place: GALL BLADDER REMOVED 2013 Infectious Disease History: No Infectious Disease History: Denies: Hx Clostridium Difficile, Hx Hepatitis, Hx Human Immunodeficiency Virus (HIV), Hx of Known/Suspected MRSA, Hx Shingles, Hx Tuberculosis, Hx Known/ Suspected VRE, Hx Known/Suspected VRSA, History Other Infectious Disease, Traveled Outside the [place] in Last 30 Days - Family History Known Family History: Positive: Cardiac Disease, Hypertension, Diabetes Family History: neg: IBS, Crohns - Social History Occupation: Employed Full-time Lives: With Family Alcohol Use: None Alcohol Amount: not recently Hx Substance Use: No Substance Use Type: Reports: None Hx Tobacco Use: No Smoking Status (MU): Never Smoked Tobacco Review of Systems Positive: Chills. Negative: Fever Positive: Other - Positive nasal congestion Positive: Chest Pain - Diffuse Positive: Shortness Of Breath, Cough - Productive with one episode of black streaks in the phlegm Positive: Abdominal Pain - Suprapubic Positive: Myalgia - Left arm that radiates from the chest Positive: Rash - Right cheek Positive: Weakness - Generalized Positive: Anxious All Other Systems Reviewed And Are Negative: Yes Physical Exam - Summary Physical Exam Summary: Appearance: Well-appearing, Well-nourished, lying in bed comfortably Skin: Warm, dry. Slightly erythematous flat rash on the right cheek. Eyes: sclera anicteric, no conjunctival pallor ENT: mucous membranes moist, pharynx appears normal Neck: Supple, nontender Respiratory: Clear to auscultation, no signs of respiratory distress Cardiovascular: Normal S1, S2. No murmurs. Normal distal pulses in tibial and radial bilaterally. Abdomen: Soft, nontender, normal active bowel sounds present Musculoskeletal: Normal, Strength/ROM Intact Neurological: A&Ox3, awake and alert, mentation is normal, speech is fluent and appropriate Psychiatric: affect is normal, does not appear anxious or depressed Triage Information Reviewed: Yes Vital Signs On Initial Exam: Initial Vitals Temp Pulse Resp BP Pulse Ox 97.6 F 86 16 146/88 99 09/27/19 17:07 09/27/19 17:07 09/27/19 17:07 09/27/19 17:07 09/27/19 17:07 Vital Signs Reviewed: Yes Procedures - Sedation Patient Received Moderate/Deep Sedation with Procedure: No Diagnostics - Vital Signs Vital Signs Temp Pulse Resp BP Pulse Ox 09/27/19 19:26 98.0 F 82 18 148/93 98 09/27/19 17:07 97.6 F 86 16 146/88 99 - Laboratory Lab Results: Lab Results 09/27/19 09/27/19 09/27/19 Range/Units 17:13 17:13 17:13 WBC 6.9 (3.5-10.8) 10^3/uL RBC 4.55 (3.70-4.87) 10^6 /uL Hgb 12.6 (12.0-16.0) g/dL Hct 38 (35-47) % MCV 83 (80-97) fL MCH 28 (27-31) pg MCHC 33 (31-36) g/dL RDW 13 (10-15) % Plt Count 294 (150-450) 10^3/uL MPV 8.0 (7.4-10.4) fL Neut % (Auto) 58.5 % Lymph % (Auto) 35.9 % [place] % (Auto) 4.5 % Eos % (Auto) 0.5 % Baso % (Auto) 0.6 % Absolute Neuts (auto) 4.0 (1.5-7.7) 10^3/ul Absolute Lymphs (auto) 2.5 (1.0-4.8) 10^3/ul Absolute Monos (auto) 0.3 (0-0.8) 10^3/ul Absolute Eos (auto) 0.0 (0-0.6) 10^3/ul Absolute Basos (auto) 0.0 (0-0.2) 10^3/ul Absolute Nucleated RBC 0.0 10^3/ul Nucleated RBC % 0.0 INR (Anticoag Therapy) 0.97 (0.82-1.09) Sodium 137 (135-145) mmol/L Potassium 3.6 (3.5-5.0) mmol/L Chloride 105 (101-111) mmol/L Carbon Dioxide 25 (22-32) mmol/L Anion Gap 7 (2-11) mmol/L BUN 13 (6-24) mg/dL Creatinine 0.75 (0.51-0.95) mg/dL Est GFR ( Amer) 107.0 (>60) Est GFR (Non-Af Amer) 88.5 (>60) BUN/Creatinine Ratio 17.3 (8-20) Glucose 83 (70-100) mg/dL Calcium 10.0 (8.6-10.3) mg/dL Total Bilirubin 0.50 (0.2-1.0) mg/dL AST 16 (13-39) U/L ALT 17 (7-52) U/L Alkaline Phosphatase 78 (34-104) U/L Troponin I 0.00 (<0.03) ng/mL Total Protein 8.4 (6.4-8.9) g/dL Albumin 4.2 (3.2-5.2) g/dL Globulin 4.2 H (2-4) g/dL Albumin/Globulin Ratio 1.0 (1-3) Result Diagrams: 0419 17:13 19 17:13 Lab Statement: Any lab studies that have been ordered have been reviewed, and results considered in the medical decision making process. - Radiology Chest X-ray Radiology Interpretation Completed By: ED Physician Summary of Radiographic Findings: Chest X-ray IMPRESSION: no acute process. Reviewed and interpreted by Dr. Ramey, pending official radiology report. - EKG 17:05 Cardiac Rate: NL - 80 BPM EKG Rhythm: Sinus Rhythm ST Segment: Normal Ectopy: None Summary of EKG Findings: EKG at 17:05 shows NSR at 80 BPM, P waves, QRS complex , and T waves are within normal limits, T waves and intervals are normal, no ischemic changes. This is a normal EKG. Reviewed and interpreted by Dr. Ramey. Chest Pain Course/Dx - Course Course Of Treatment: Patient is a 34 y/o F presenting to the ED for a chief complaint of intermittent diffuse chest pain that radiates to the left arm that began around 15:30 on 09/27/19. Patient is present with her daughter. Patient states she was at work when she had a sudden onset of diffuse chest pain that radiated to the left arm. She sat down after the chest pain began and had shortness of breath, paresthesia diffuse throughout the body, and generalized weakness. She describes the chest pain as a sharp sensation. Her symptoms have since resolved, but she has a rash on her right cheek. She also reports having suprapubic abdominal pain, chills, nasal congestion, and a productive cough with one episode of black streaks in the phlegm. Her nasal congestion and cough began before this episode of chest pain. Patient denies fever or changes in diet. She denies any aggravating or alleviating factors. Patient denies tobacco use or household exposure to tobacco. PMHx is significant for panic attacks, but she denies a history of asthma or respiratory problems. She was previously prescribed medication for her panic attacks and had relief of her anxiety, but she stopped taking the medications due to a concern for side effects from the medication. She takes CBD oil for her anxiety and panic attacks with some relief. On exam, slightly erythematous flat rash on the right cheek. Laboratory abnormal findings: globulin 4.2. EKG at 17:05 shows NSR at 80 BPM, P waves, QRS complex, and T waves are within normal limits, T waves and intervals are normal, no ischemic changes. This is a normal EKG. Chest X-ray IMPRESSION: no acute process. Patient will be discharged with a diagnosis of bronchitis and panic attacks. Follow up with PCP in 2-3 days. - Diagnoses Provider Diagnoses: Bronchitis, Panic attack Discharge ED - Sign-Out/Discharge Documenting (check all that apply): Patient Departure - Discharge - Discharge Plan Condition: Good Disposition: HOME Patient Education Materials: Acute Bronchitis (ED), Anxiety (ED), Panic Attack (ED) Referrals: Care [facility] [Outside] - 1 Week Additional Instructions: Your tests and exam here tonight look good, no sign of any heart or lung problem. Part of your symptoms are from anxiety and panic attacks, although the cough and malaise you have had go more along with a lingering bronchitis. No specific treatment is needed, but you can take OTC cough and cold meds to help with the symptoms. - Billing Disposition and Condition Condition: GOOD Disposition: Home - Attestation Statements Document Initiated by Tyree: Yes Documenting Scribe: Yoselin Doshi Provider For Whom Tyree is Documenting (Include Credential): Emiliano Ramey MD Scribe Attestation: Yoselin Siddiqui, scribed for Emiliano Ramey MD on 09/28/19 at 0558. Scribe Documentation Reviewed: Yes Provider Attestation: The documentation as recorded by the Yoselin baltazar accurately reflects the service I personally performed and the decisions made by me, Emiliano Ramey MD Status of Scribe Document: Viewed
[2019-09-27 21:30] VITALS: BP 116/93
== END 2019-09-27 21:30 | disposition home or self-care (01) ==
LOC: ED 17:01
DX: J40 Bronchitis, not specified as acute or chronic (principal); F41.0 Panic disorder [episodic paroxysmal anxiety]; R07.9 Chest pain, unspecified; R68.83 Chills (without fever); R06.02 Shortness of breath; R10.9 Unspecified abdominal pain; R21 Rash and other nonspecific skin eruption; R53.1 Weakness; F41.9 Anxiety disorder, unspecified
CPT/HCPCS: 36415; 71046; 80053; 84484; 85025; 85610; 93005; 99283

== ENCOUNTER 2019-12-11 14:35 | Emergency (ER) | payer OTHER ==
--- OUTSIDE RECORDS SUMMARY | 2019-12-11 14:41 | XMS REPORT | Continuity of Care Document ---
:1985 External Reference #:[id number] Author Name Maria T Vaughan MD (transmitted by agent of provider Lino Castellanos) Address [address] [place] [address] Care Team Providers Name Role Phone [facility] - Care Team Information [employer] Mental Health Problems Active Problems Provider Date Adjustment disorder with depressed Nata Ortiz M.D. Onset: 07/28/2013 mood Obesity Nata Ortiz M.D. Onset: 07/28/2013 Amenorrhea Stefan Waters M.D. Onset: 01/17/2015 Abnormal cervical Papanicolaou smear Kofi Diaz M.D.,[facility] Onset: with positive human papillomavirus deoxyribonucleic acid test Constipation Stephanie Flood NP Onset: 09/22/2018 Urinary tract infectious disease Stefan Waters M.D. Onset: 10/01/2018 Bacterial vaginosis Stephanie Flood NP Onset: 09/22/2018 Social History Type Date Description Comments Sex Unknown Tobacco Use Start: Unknown Never Smoked Cigarettes Smoking Status Reviewed: 12/07/19 Never Smoked Cigarettes ETOH Use Rarely consumes liquor Tobacco Use Start: Unknown Patient has never smoked Recreational Drug Use Denies Drug Use Exercise Type/Frequency tv work out Allergies, Adverse Reactions, Alerts Description No Known Drug Allergies Medications Active Medications SIG Qnty Indications Ordering Provider Date Systane Ultra 1 drop each eye 8ml H53.30 PATEL Calle 08/30/2019 0.4-0.3% twice daily for Solution dry eyes Multi Vitamin 1 by mouth every Unknown Tablets day History Medications No Active Medications Unknown 08/30/2019 - 08/30/2019 Hydroxyzine HCL take one tablet 30tabs F41.1 Rexofia Rich, 08/30/2019 - 25mg by mouth 2 x LIFTER Unknown Tablets daily as needed Medications Administered in Office Medication SIG Qnty Indications Ordering Provider Date PPD Injection Nurse Visit [facility] 01/22/2015 PPD Injection Nurse Visit [facility] 01/18/2015 Immunizations CPT Code Status Date Vaccine Lot # [id number] Given 09/24/2015 Influenza Virus Vaccine, Quadrivalent, Split, [id number] Preservative Free [id number] Given 07/28/2013 Flu Vaccine Split Virus Preservative Free For [id number] Indiv [id number] Older Vital Signs Date Vital Result Comment 12/07/2019 9:48am Heart Rate 68 /min Respiratory Rate 16 /min Body Temperature 97.4 F 09/07/2019 10:40am Height 62.5 inches 5'2.50" Weight 180.00 lb Heart Rate 68 /min BP Systolic Sitting 108 mmHg BP Diastolic Sitting 68 mmHg Respiratory Rate 18 /min Body Temperature 98.3 F BMI (Body Mass Index) 32.4 kg/m2 Results Test Acquired Date Facility Test Result H/L Range Note Laboratory test 09/27/2019 [facility] Troponin-I 0.00 ng/mL < 0.[address] (TnI) [place] [address] [phone] Comp Metabolic 09/27/2019 [facility] Sodium 137 mmol/L Normal 135-145 Panel [address] [place] [address] [phone] Potassium 3.6 mmol/L Normal 3.5-5.0 Chloride 105 mmol/L Normal 101-111 Co2 Carbon Dioxide 25 mmol/L Normal 22-32 Anion Gap 7 mmol/L Normal 2-11 Glucose 83 mg/dL Normal 70-100 Blood Urea Nitrogen 13 mg/dL Normal 6-24 Creatinine 0.75 mg/dL Normal 0.51-0.95 BUN/Creatinine Ratio 17.3 Normal 8-20 Calcium 10.0 mg/dL Normal 8.6-10.3 Total Protein 8.4 g/dL Normal 6.4-8.9 Albumin 4.2 g/dL Normal 3.2-5.2 Globulin 4.2 g/dL High 2-4 Albumin/Globulin Ratio 1.0 Normal 1-3 Total Bilirubin 0.50 mg/dL Normal 0.2-1.0 Alkaline Phosphatase 78 U/L Normal 34-104 Alt 17 U/L Normal 7-52 Ast 16 U/L Normal 13-39 Egfr Non- 88.5 >60 Egfr 107.0 >60 2 Laboratory test 09/27/2019 [facility] Troponin-I 0.00 <0.03 [address] (TnI) ng/[place] [address] [phone] CBC Auto Diff 09/27/2019 [facility] White Blood 6.9 Normal 3.5 -10.[address] Count 10^3/[place] [address] [phone] Red Blood Count 4.55 10^6/uL Normal 3.70-4.87 Hemoglobin 12.6 g/dL Normal 12.0-16.0 Hematocrit 38 % Normal 35-47 Mean Corpuscular Volume 83 fL Normal 80-97 Mean Corpuscular Hemoglobin 28 pg Normal 27-31 Mean Corpuscular HGB Conc 33 g/dL Normal 31-36 Red Cell Distribution Width 13 % Normal 10-15 Platelet Count 294 10^3/uL Normal 150-450 Mean Platelet Volume 8.0 fL Normal 7.4-10.4 Abs Neutrophils 4.0 10^3/uL Normal 1.5-7.7 Abs Lymphocytes 2.5 10^3/uL Normal 1.0-4.8 Abs Monocytes 0.3 10^3/uL Normal 0-0.8 Abs Eosinophils 0.0 10^3/uL Normal 0-0.6 Abs Basophils 0.0 10^3/uL Normal 0-0.2 Abs Nucleated RBC 0.0 10^3/uL Granulocyte % 58.5 % Lymphocyte % 35.9 % Monocyte % 4.5 % Eosinophil % 0.5 % Basophil % 0.6 % Nucleated Red Blood Cells % 0.0 Inr/Protime 09/27/2019 [facility] Inr 0.97 Normal 0.82-1.[address] [place] [address] [phone] 1 Troponin-I testing on Plasma Separator Tubes (PST) has a known false positive rate of 0.20-0.40%. All positive troponins reflex immediately to secondary confirmatory testing. Using the [employer] DxI 800 Access Immunoassay systems, the 99th percentile upper reference limit was demonstrated to be < 0.03 ng/mL. 2 Because ethnic data is not always readily available, this report includes an eGFR for both -Americans and non- Americans. The National Kidney Disease Education Program (NKDEP) does not endorse the use of the MDRD equation for patients that are not between the ages of 18 and 70, are , have extremes of body size, muscle mass, or nutritional status, or are non- or non-. According to the National Kidney Foundation, irrespective of diagnosis, the stage of the disease is based on the level of kidney function: Stage Description GFR(mL/min/1.73 m(2)) 1 Kidney damage with normal or decreased GFR 90 2 Kidney damage with mild decrease in GFR 60-89 3 Moderate decrease in GFR 30-59 4 Severe decrease in GFR 15-29 5 Kidney failure <15 (or dialysis) 3 Troponin-I testing on Plasma Separator Tubes (PST) has a known false positive rate of 0.20-0.40%. All positive troponins reflex immediately to secondary confirmatory testing. Using the [employer] DxI 800 Access Immunoassay systems, the 99th percentile upper reference limit was demonstrated to be < 0.03 ng/mL. 4 Standard intensity warfarin therapeutic range: 2.0-3.0 High intensity warfarin therapeutic range: 2.5-3.5 Procedures Description No Information Available Medical Devices Description No Information Available Encounters Type Date Location Provider Dx Diagnosis Office Visit 09[facility] Maria T Vaughan MD N64.4 Mastodynia 10:30a Of [facility] Office Visit 08/30/2019 [facility] Internal Medicine PATEL Calle N64.4 Mastodynia 2:40p - Ccmob F41.1 Generalized anxiety disorder F43.21 Adjustment disorder with depressed mood H53.30 Unspecified disorder of binocular vision Z23 Encounter for immunization Assessments Date Code Description Provider 12/07/2019 N64.4 Mastodynia Maria T Vaughan MD 09/07/2019 N64.4 Mastodynia Maria T Vaughan MD 08/30/2019 N64.4 Mastodynia PATEL Calle 08/30/2019 F41.1 Generalized anxiety disorder PATEL Calle 08/30/2019 F43.21 Adjustment disorder with depressed mood PATEL Calle 08/30/2019 H53.30 Unspecified disorder of binocular vision PATEL Calle 08/30/2019 Z23 Encounter for immunization PATEL Calle Plan of Treatment 12/07/2019 - Maria T Vaughan MDN64.4 MastodyniaNew Xrays:US Breast Complete Right, Ordered: 12/07/19Follow up:After 6 month sono Functional Status Description No Information Available Mental Status Description No Information Available Referrals Refer to Reason for Referral Status Appt Date Karen Mathias LCSW Sent [address] , [address] [place], [place] [id number] [phone] Bala Dorsey MD resent 10/26/19 Sent [address] [place] [id number] [phone] Maria T Vaughan MD Sent 09/07/2019 [address] [facility] [address] [place] [address] [phone] [facility] [address] [place] [address] [phone]
[2019-12-11 15:17] VITALS: BP 140/81
--- NOTE | 2019-12-11 16:32 | UC ---
Abdominal Pain Female HPI - HPI Summary HPI Summary: 34-year-old female presenting with daughter for complaint of rectal pain and pressure 3 days. Patient states it "feels like constipation or like something is stuck in my ass" but states she is having are "normal" bowel movement daily. States the pressure is constant. She notes concern for hemorrhoids but denies history of them. Denies blood in the stool or on the toilet paper. Notes intermittent lower abdominal pain. Denies urinary symptoms. Denies pain with intercourse or defecation. Denies ever having anal intercourse. Denies n/v/d. Denies bowel/bladder incontinence. LMP two months ago. Denies history of GI/ disorders. A0. Patient notes history of anxiety and depression. Notes recent increase in panic attacks. States she "gets really worried about her health now." States she was "so anxious about the pressure in her anus last night that it caused a panic attack" and "lightning pain in her chest that made her feel like she is dying." Denies pain in her chest today. Also notes "immediate need to poop when she gets anxious" and is concerned this is abnormal. She states this has happened in the past but that she has declined treatment with medication by her pcp, stating she does not want the side effects. Patient adds that her grandfather had colon cancer and her symptoms have her concerned that she may also have cancer. - History of Current Complaint Chief Complaint: UCGI Stated Complaint: ABDOMINAL PAIN Hx Obtained From: Patient Hx Last Menstrual Period: 10/18/20 Pain Intensity: 7 Pain Scale Used: 0-10 Numeric Allergies/Adverse Reactions: Allergies Allergy/AdvReac Type Severity Reaction Status Date / Time Iodinated Contrast Media Allergy Hives Verified 12/11/19 15:18 [Iodinated Contrast- Oral and IV Dye] iohexol Allergy Hives Verified 12/11/19 15:18 PMH/Surg Hx/FS Hx/Imm Hx Psychological History: Anxiety, Depression, Other - Panic attacks Other History Of: Negative For: Anticoagulant Therapy - Surgical History Surgical History: Yes Surgery Procedure, Year, and Place: GALL BLADDER REMOVED 2013 - Family History Known Family History: Positive: Cardiac Disease, Hypertension, Diabetes Family History: neg: IBS, Crohns - Social History Alcohol Use: None Alcohol Amount: not recently Substance Use Type: None Smoking Status (MU): Never Smoked Tobacco - Immunization History Most Recent Influenza Vaccination: 07/2017 Most Recent Tetanus Shot: 11/12/2016 Most Recent Pneumonia Vaccination: never Review of Systems All Other Systems Reviewed And Are Negative: Yes Constitutional: Positive: Negative. Negative: Fever Respiratory: Positive: Negative Cardiovascular: Positive: Negative Gastrointestinal: Positive: Abdominal Pain - intermittent lower abd pain, Other - "anal pressure". Negative: Vomiting, Diarrhea, Nausea Genitourinary: Positive: Negative Neurological/Mental Status: Positive: Negative Psychological: Positive: Anxious Physical Exam Triage Information Reviewed: Yes Appearance: Well-Appearing, No Pain Distress, Obese Vital Signs: Initial Vital Signs Temp 99.5 F 12/11/19 15:09 Pulse 83 12/11/19 15:09 Resp 16 12/11/19 15:09 BP 140/81 12/11/19 15:09 Pulse Ox 100 12/11/19 15:09 Vital Signs Reviewed: Yes Eyes: Positive: Conjunctiva Clear ENT: Positive: Hearing grossly normal Neck: Positive: Supple Respiratory Exam: Normal Respiratory: Positive: Lungs clear, Normal breath sounds, No respiratory distress, No accessory muscle use Cardiovascular Exam: Normal Cardiovascular: Positive: RRR, No Murmur Abdominal Exam: Normal Abdomen Description: Positive: Nontender, No Organomegaly, Soft, Other: - no anal fissures, no hemmorhoids. Negative: CVA Tenderness (R), CVA Tenderness (L) , Distended, Guarding Bowel Sounds: Positive: Present Pelvic Exam: Positive: External Exam Normal, Speculum Exam Normal, Bimanual Exam Normal, No Cerv. Motion Tender. Negative: Lesions, Tender Adnexa, Tender Uterus Neurological: Positive: Alert Psychological: Positive: Age Appropriate Behavior Skin Exam: Normal Abd Pain Female Course/Dx - Course Course Of Treatment: UA negative. Negative urine . Pelvic exam WNL. I had the patient bear down. No hemorrhoids visualized. No fissures or lesions. No pain elicited throughout exam. Educated patient on symptomatic treatment and s/s that warrant immediate evaluation. Patient states she has appointment with OBGYN for annual check up on the . I stressed importance of attending the appt if still having symptoms.I also educated on anxiety and panic attacks and encouraged patient to follow up with pcp for reevaluation. Patient voiced understanding and agreed with treatment plan. - Differential Dx/Diagnosis Provider Diagnosis: Rectal pressure, Anxiety about health Discharge ED - Sign-Out/Discharge Documenting (check all that apply): Patient Departure All imaging exams completed and their final reports reviewed: No Studies - Discharge Plan Condition: Stable Disposition: HOME Patient Education Materials: Rectal Pain (ED) Referrals: [facility]IAN REFERRAL [Outside] Additional Instructions: As discussed, it is unclear what is causing your symptoms today. Increase your fluid and fiber intake. You may also take an over the counter stool softener. Taking sitz baths may also help relieve symptoms. It is important that you follow up with your OBGYN on the as scheduled. You may want to call and see if you can make the appointment sooner. You may also follow up with your primary care provider or the physician referral listed below. Go to the emergency room if you experience new or worsening symptoms. - Billing Disposition and Condition Condition: STABLE Disposition: Home - Attestation Statements Provider Attestation: This patient was not seen by me. I was available for consult. Chart reviewed. [email or web address]
== END 2019-12-11 16:45 | disposition home or self-care (01) ==
LOC: UCEAST 14:35
DX: F41.9 Anxiety disorder, unspecified (principal); K62.89 Other specified diseases of anus and rectum; Z91.041 Radiographic dye allergy status
CPT/HCPCS: 81003; 84702; 99212; G0463

== ENCOUNTER 2019-12-16 07:06 | Emergency (ER) | payer OTHER ==
[2019-12-16] MEDS ORDERED: Acetaminophen TAB* 325 MG PO ONE (07:35)
[2019-12-16] MEDS ORDERED: Simethicone TAB* 80 MG TAB.CHEW PO ONE (07:35)
[2019-12-16 07:47] LABS: ABS Basophils 0.1 10^3/ul (0-0.2); ABS Eosinophils 0.1 10^3/ul (0-0.6); ABS Lymphocytes 1.9 10^3/ul (1.0-4.8); ABS Monocytes 0.2 10^3/ul (0-0.8); ABS Neutrophils 2.5 10^3/ul (1.5-7.7); Eosinophil % 2.1 %; Hematocrit 35 % (35-47); Hemoglobin 11.6 g/dL (12.0-16.0); Lymphocyte % 39.4 %; Mean Corpuscular HGB Conc 34 g/dL (31-36); Mean Corpuscular Hemoglobin 28 pg (27-31); Mean Corpuscular Volume 83 fL (80-97); Mean Platelet Volume 7.8 fL (7.4-10.4); Platelet Count 308 10^3/uL (150-450); Red Blood Count 4.17 10^6 /uL (3.70-4.87); Red Cell Distribution Width 14 % (10-15); White Blood Count 4.8 10^3/uL (3.5-10.8)
[2019-12-16 08:04] LABS: ALT 19 U/L (7-52); AST 19 U/L (13-39); Albumin 3.9 g/dL (3.2-5.2); Albumin/Globulin Ratio 1.1 (1-3); Alkaline Phosphatase 77 U/L (34-104); Anion Gap 6 mmol/L (2-11); BUN/Creatinine Ratio 11.8 (8-20); Blood Urea Nitrogen 9 mg/dL (6-24); CO2 Carbon Dioxide 25 mmol/L (22-32); Calcium 8.8 mg/dL (8.6-10.3); Chloride 105 mmol/L (101-111); EGFR African American 105.4 (>60); EGFR Non-African American 87.1 (>60); Globulin 3.7 g/dL (2-4); Glucose 99 mg/dL (70-100); Potassium 4.3 mmol/L (3.5-5.0); Sodium 136 mmol/L (135-145); Total Protein 7.6 g/dL (6.4-8.9)
[2019-12-16 08:10] LABS: HCG Pregnancy < 0.60 mIU/mL
[2019-12-16 08:15] LABS: Urine Appearance Clear; Urine Bilirubin Negative (Negative); Urine Blood 3+ (Negative); Urine Color Yellow; Urine Glucose Negative (Negative); Urine Ketones Negative (Negative); Urine Nitrite Negative (Negative); Urine Protein Negative (Negative); Urine Specific Gravity 1.018 (1.010-1.030); Urine Urobilinogen Negative (Negative)
[2019-12-16 08:21] LABS: Urine Bacteria Absent (Absent); Urine Red Blood Cell 3+(>10/hpf) (Absent); Urine Squamous Epithelial Cell Present (Absent); Urine White Blood Cell Trace(0-5/hpf) (Absent)
[2019-12-16 09:16] VITALS: BP 123/86
--- NOTE | 2019-12-16 09:46 | ED ---
Abdominal Pain/Female - HPI Summary HPI Summary: This patient is otherwise healthy 34-year-old female presenting to the ED with possible complaints. She states over the past few days, she has felt constipated and gassy. She took suppositories over the past few days with bowel movements, but now concerned over diarrhea. She also noted a small amount of blood in the stool. Denies N/V. Denies urinary symptoms. Denies fevers, sweats or chills. She states she feels bloated and had emily like stool. L sided abd pain after her bowel movement yesterday. Concerned over her kidneys and states she has a fruity smell to her urine in the past few days. Family hx of diabetes. Pt appears very anxious and tearful on exam. Anxious about dx and states "something is wrong with me." Currently on her menses and states she feels bloated - but states this is not related to her menses. No change in diet. Takes no medications. - History of Current Complaint Chief Complaint: EDGeneral Stated Complaint: GENERAL ILLNESS PER PT Time Seen by Provider: 12/16/19 07:19 Hx Obtained From: Patient Hx Last Menstrual Period: 10/18/20 ?: No Onset/Duration: Sudden Onset Timing: Constant Severity Initially: Moderate Severity Currently: Moderate Pain Intensity: 7 Pain Scale Used: 0-10 Numeric Aggravating Factor(s): Nothing Alleviating Factor(s): Nothing Associated Signs and Symptoms: Positive: Negative - Risk Factors Ectopic Risk Factor: Negative Ovarian Torsion Risk Factor: Negative Allergies/Adverse Reactions: Allergies Allergy/AdvReac Type Severity Reaction Status Date / Time Iodinated Contrast Media Allergy Hives Verified 12/16/19 07:35 [Iodinated Contrast- Oral and IV Dye] iohexol Allergy Hives Verified 12/16/19 07:35 Home Medications: Home Medications Etonogest/Eth.estradiol (Nf) [Nuvaring Vaginal Ring] 1 each VAGINAL MONTHLY [History Confirmed 12/11/19] PMH/Surg Hx/FS Hx/Imm Hx Previously Healthy: Yes Endocrine/Hematology History: Denies: Hx Anticoagulant Therapy, Hx Blood Disorders, Hx Diabetes, Hx Thyroid Disease Cardiovascular History: Denies: Hx Aneurysm, Hx Hypertension Respiratory History: Denies: Hx Asthma, Hx Chronic Obstructive Pulmonary Disease (COPD) GI History: Denies: Hx Crohn's Disease, Hx Gastrointestinal Bleed, Hx Hiatal Hernia, Hx Irritable Bowel, Hx Ulcer Sensory History: Denies: Hx Legally Blind, Hx Deafness Opthamlomology History: Denies: Hx Legally Blind Psychiatric History: Reports: Hx Anxiety - Surgical History Surgery Procedure, Year, and Place: GALL BLADDER REMOVED 2013 - Immunization History Hx Pertussis Vaccination: No Immunizations Up to Date: Yes Infectious Disease History: No Infectious Disease History: Denies: Hx Clostridium Difficile, Hx Hepatitis, Hx Human Immunodeficiency Virus (HIV), Hx of Known/Suspected MRSA, Hx Shingles, Hx Tuberculosis, Hx Known/ Suspected VRE, Hx Known/Suspected VRSA, History Other Infectious Disease, Traveled Outside the [place] in Last 30 Days - Family History Known Family History: Positive: Cardiac Disease, Hypertension, Diabetes Family History: neg: IBS, Crohns - Social History Occupation: Employed Full-time Lives: With Family Alcohol Use: None Alcohol Amount: not recently Hx Substance Use: No Substance Use Type: Reports: None Hx Tobacco Use: No Smoking Status (MU): Never Smoked Tobacco Review of Systems Negative: Fever, Chills, Fatigue, Skin Diaphoresis Negative: Palpitations, Chest Pain Negative: Shortness Of Breath Positive: Abdominal Pain, Diarrhea, Nausea. Negative: Vomiting Negative: Rash, Bruising Positive: Headache All Other Systems Reviewed And Are Negative: Yes Physical Exam Triage Information Reviewed: Yes Vital Signs On Initial Exam: Initial Vitals Temp Pulse Resp BP Pulse Ox 98.5 F 91 18 140/69 100 12/16/19 07:11 12/16/19 07:11 12/16/19 07:11 12/16/19 07:11 12/16/19 07:11 Vital Signs Reviewed: Yes Appearance: Positive: Well-Appearing, Well-Nourished Skin: Positive: Warm, Skin Color Reflects Adequate Perfusion Eyes: Positive: EOMI, DAQUAN, Conjunctiva Clear Neck: Positive: Supple, No Lymphadenopathy Respiratory/Lung Sounds: Positive: Clear to Auscultation, Breath Sounds Present Cardiovascular: Positive: RRR, Pulses are Symmetrical in both Upper and Lower Extremities Musculoskeletal: Positive: Normal, Strength/ROM Intact Neurological: Positive: Speech Normal Psychiatric: Positive: Normal, Affect/Mood Appropriate AVPU Assessment: Alert Procedures - Sedation Patient Received Moderate/Deep Sedation with Procedure: No Diagnostics - Vital Signs Vital Signs Temp Pulse Resp BP Pulse Ox 12/16/19 09:09 97.6 F 73 16 123/86 100 12/16/19 09:06 70 100 12/16/19 09:04 72 123/86 98 12/16/19 08:25 72 118/73 99 12/16/19 08:04 75 99 12/16/19 07:56 131/106 12/16/19 07:28 90 99 12/16/19 07:11 98.5 F 91 18 140/69 100 - Laboratory Lab Results: Lab Results 12/16/19 12/16/19 12/16/19 Range/Units 07:39 07:39 08:00 WBC 4.8 (3.5-10.8) 10^3/uL RBC 4.17 (3.70-4.87) 10^6 /uL Hgb 11.6 L (12.0-16.0) g/dL Hct 35 (35-47) % MCV 83 (80-97) fL MCH 28 (27-31) pg MCHC 34 (31-36) g/dL RDW 14 (10-15) % Plt Count 308 (150-450) 10^3/uL MPV 7.8 (7.4-10.4) fL Neut % (Auto) 52.1 % Lymph % (Auto) 39.4 % [place] % (Auto) 5.2 % Eos % (Auto) 2.1 % Baso % (Auto) 1.2 % Absolute Neuts (auto) 2.5 (1.5-7.7) 10^3/ul Absolute Lymphs (auto) 1.9 (1.0-4.8) 10^3/ul Absolute Monos (auto) 0.2 (0-0.8) 10^3/ul Absolute Eos (auto) 0.1 (0-0.6) 10^3/ul Absolute Basos (auto) 0.1 (0-0.2) 10^3/ul Absolute Nucleated RBC 0.0 10^3/ul Nucleated RBC % 0.0 Sodium 136 (135-145) mmol/L Potassium 4.3 (3.5-5.0) mmol/L Chloride 105 (101-111) mmol/L Carbon Dioxide 25 (22-32) mmol/L Anion Gap 6 (2-11) mmol/L BUN 9 (6-24) mg/dL Creatinine 0.76 (0.51-0.95) mg/dL Est GFR ( Amer) 105.4 (>60) Est GFR (Non-Af Amer) 87.1 (>60) BUN/Creatinine Ratio 11.8 (8-20) Glucose 99 (70-100) mg/dL Calcium 8.8 (8.6-10.3) mg/dL Total Bilirubin 0.40 (0.2-1.0) mg/dL AST 19 (13-39) U/L ALT 19 (7-52) U/L Alkaline Phosphatase 77 (34-104) U/L Total Protein 7.6 (6.4-8.9) g/dL Albumin 3.9 (3.2-5.2) g/dL Globulin 3.7 (2-4) g/dL Albumin/Globulin Ratio 1.1 (1-3) Beta HCG, Quant < 0.60 mIU/mL Urine Color Yellow Urine Appearance Clear Urine pH 5.0 (5-9) Ur Specific [place] 1.018 (1.010-1.030) Urine Protein Negative (Negative) Urine Ketones Negative (Negative) Urine Blood 3+ A (Negative) Urine Nitrate Negative (Negative) Urine Bilirubin Negative (Negative) Urine Urobilinogen Negative (Negative) Ur Leukocyte Esterase Negative (Negative) Urine WBC (Auto) Trace(0-5/hpf) (Absent) Urine RBC (Auto) 3+(>10/hpf) A (Absent) Ur Squamous Epith Cells Present A (Absent) Urine Bacteria Absent (Absent) Urine Glucose Negative (Negative) Result Diagrams: 12/16/19 07:39 12/16/19 07:39 Lab Statement: Any lab studies that have been ordered have been reviewed, and results considered in the medical decision making process. Abdominal Pain Fem Course/Dx - Course Course Of Treatment: This patient is a 34-year-old female presenting to the ED with multiple complaints. Labs obtained which are WNL. UA WNL except for blood but pt on menses. Patient is tearful, and appears anxious but otherwise does not appear ill. No findings on physical exam. Appears anxious about sxs, however no acute findings and symptoms seems part of normal body behaviors. On discharge, pt having no symptoms. - Diagnoses Differential Diagnosis: Positive: Other - constipation, anxiety about health, menses, bloating Provider Diagnoses: Abdominal pain, Anxiety Discharge ED - Sign-Out/Discharge Documenting (check all that apply): Patient Departure - Discharge Plan Condition: Stable Disposition: HOME Forms: *Work Release Referrals: No Primary Care Phys,NOPCP [Primary Care Provider] - Oneal Parker MD [Medical Doctor] - Additional Instructions: Please follow up with ophthalmology if symptoms persist or worsen Rest today Drink plenty of fluids Ibuprofen for any pain to the abdomen most likely associated with your recent bowel history and menses - Billing Disposition and Condition Condition: STABLE Disposition: Home - Attestation Statements Provider Attestation: I was available for consult. This patient was seen by the MURPHY. The patient was not presented to, seen by, or examined by me. Jaya Aquino MD
== END 2019-12-16 09:09 | disposition home or self-care (01) ==
LOC: ED 07:06
DX: R10.9 Unspecified abdominal pain (principal); F41.9 Anxiety disorder, unspecified; R19.7 Diarrhea, unspecified; R11.0 Nausea; Z79.3 Long term (current) use of hormonal contraceptives
CPT/HCPCS: 36415; 80053; 81003; 81015; 84702; 85025; 87086; 99283; A9270-GY

== ENCOUNTER 2019-12-27 07:54 | Emergency (ER) | payer OTHER ==
--- OUTSIDE RECORDS SUMMARY | 2019-12-27 08:07 | XMS REPORT | Continuity of Care Document ---
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 Onset: 07/28/2013 mood Obesity Nata Ortiz M.D. Onset: 07/28/2013 Amenorrhea Stefan Waters M.D. Onset: 01/17/2015 Abnormal cervical Papanicolaou smear Kofi Diaz M.D.,[facility] Onset: with positive human papillomavirus deoxyribonucleic acid test Constipation Stephanie Flood NP Onset: 09/22/2018 Urinary tract infectious disease Stefan Waters M.D. Onset: 10/01/2018 Bacterial vaginosis Stephanie Flood NP Onset: 09/22/2018 Social History Type Date Description Comments Sex Unknown Tobacco Use Start: Unknown Never Smoked Cigarettes Smoking Status Reviewed: 12/25/19 Never Smoked Cigarettes ETOH Use Rarely consumes liquor Tobacco Use Start: Unknown Patient has never smoked Recreational Drug Use Denies Drug Use Exercise Type/Frequency tv work out Allergies, Adverse Reactions, Alerts Description No Known Drug Allergies Medications Active Medications SIG Qnty Indications Ordering Provider Date Buspirone HCL take one tablet 60tabs F41.1 Alex Nielsen, 12/25/2019 10mg two times a day. Tablets Colace take one tablet 60caps K59.00 Alex Nielsen, 12/25/2019 100mg Capsules twice a day. Systane Ultra 1 drop each eye 8ml H53.30 Zsofia Rich, FIXED INCOME ANALYST 08/30/2019 0.4-0.3% twice daily for Solution dry eyes Multi Vitamin 1 by mouth every Unknown Tablets day History Medications No Active Medications Unknown 08/30/2019 - 08/30/2019 Hydroxyzine HCL take one tablet 30tabs F41.1 Zsofia Rich, 08/30/2019 - 25mg by mouth 2 x FIXED INCOME ANALYST Unknown Tablets daily as needed Medications Administered in Office Medication SIG Qnty Indications Ordering Provider Date PPD Injection Nurse Visit [facility] 01/22/2015 PPD Injection Nurse Visit [facility] 01/18/2015 Immunizations CPT Code Status Date Vaccine Lot # [id number] Given 09/24/2015 Influenza Virus Vaccine, Quadrivalent, Split, [id number] Preservative Free [id number] Given 07/28/2013 Flu Vaccine Split Virus Preservative Free For [id number] Indiv 3Yr Older Vital Signs Date Vital Result Comment 12/25/2019 10:42am Height 63 inches 5'3" Weight 180.00 lb Heart Rate 84 /min BP Systolic Sitting 121 mmHg BP Diastolic Sitting 81 mmHg Body Temperature 98.1 F O2 % BldC Oximetry 98 % BMI (Body Mass Index) 31.9 kg/m2 12/07/2019 9:48am Heart Rate 68 /min Respiratory Rate 16 /min Body Temperature 97.4 F Results Test Acquired Date Facility Test Result H/L Range Note Laboratory test 12/25/2019 [facility] TSH <pending> finding [address] ([place] [address] Stim Horm) [phone] Laboratory test 09/27/2019 [facility] Troponin-I 0.00 ng/mL < 0.[address] (TnI) [place] [address] [phone] Comp Metabolic 09/27/2019 [facility] Sodium 137 mmol/L Normal 135-[address] [place] [address] [phone] Potassium 3.6 mmol/L Normal 3.5-5.0 Chloride 105 [...] Egfr 107.0 >60 2 Laboratory test 09/27/2019 [facility] Troponin-I 0.00 <0.03 [address] (TnI) ng/[place] [address] [phone] CBC Auto Diff 09/27/2019 [facility] White Blood 6.9 Normal 3.5 -10.[address] Count 10^3/[place] [address] [phone] Red Blood Count 4.55 10^6/uL Normal 3.70-4.87 [...] Red Blood Cells % 0.0 Inr/Protime 09/27/2019 [facility] Inr 0.97 Normal 0.82-1.[address] [place] [id number] [phone] 1 Troponin-I testing on Plasma Separator Tubes [...] Date Location Provider Dx Diagnosis Office Visit [facility] Maria T Vaughan MD N64.4 Mastodynia 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 Visit 09/07/2019 [facility] Maria T Vaughan MD N64.4 Mastodynia 10:30a Of [facility] Office Visit 08/30/2019 [facility] PATEL Calle N64.4 Mastodynia 2:40p - Ccmob F41.1 Generalized anxiety disorder F43.21 Adjustment disorder with depressed mood H53.30 Unspecified disorder of binocular vision Z23 Encounter for immunization Assessments Date Code Description Provider 12/25/2019 F41.1 Generalized anxiety disorder Alex Nielsen MD 12/25/2019 F33.1 Major depressive disorder, recurrent, moderate Alex Nielsen MD 12/25/2019 K59.00 Constipation, unspecified Alex Nielsen MD 12/07/2019 N64.4 Mastodynia Maria T Vaughan MD 09/07/2019 N64.4 Mastodynia Maria T Vaughan MD 08/30/2019 N64.4 Mastodynia Alexis Villanueva, [facility] 08/30/2019 F41.1 Generalized anxiety disorder Alexis Villanueva, FIXED INCOME ANALYST 08/30/2019 F43.21 Adjustment disorder with depressed mood Alexis Villanueva, FIXED INCOME ANALYST 08/30/2019 H53.30 Unspecified disorder of binocular vision PATEL Calle 08/30/2019 Z23 Encounter for immunization PATEL Calle Plan of Treatment Future Appointment(s):01/17/2020 10:00 am - Alex Nielsen MD at [facility] - [address]/25/2019 - Alex Nielsen MDF41.1 Generalized anxiety disorderNew Medication:Buspirone HCL 10 mg - take one tablet two times a day.Comments:1. Take Buspirone 10 mg one tablet two times a day.Follow up:[address] Nielsen DONNA records from OBGYN.F33.1 Major depressive disorder, recurrent, moderateComments:1. Blood work today.2. Please start [facility]selling [facility].3. Ifyou feel like in crisis then please go to Emergency room.K59.00 Constipation, unspecifiedNew Medication: Colace 100 mg - take one tablet twice a day.Comments:1. Take Colase 10 mg one tablet two times a day.2. Please see GI in January 03. Functional Status Description No Information Available Mental Status Description No Information Available Referrals Refer to Reason for Referral Status Appt Date Karen Mathias LCSW Sent [address] [place] [address] [phone] Bala Dorsey MD resent 10/26/[address] [place] [address] [phone] Maria T Vaughan MD Sent 09/07/2019 [address] [facility] [place] [address] [phone] [facility] Sent [address] [place] [address] [phone]
--- OUTSIDE RECORDS SUMMARY | 2019-12-27 08:07 | XMS REPORT | Continuity of Care Document ---
:1985 External Reference #:[id number] Author Name Ginny Guzmán MD (transmitted by agent of provider Terri Manuel ) Address [address] [place] [address] Problems Active Problems Provider Date Multigravida María Islas NP Onset: 06/19/2016 History of dysplasia of cervix Ginny Guzmán MD Onset: 08/02/2019 Abnormal cervical Papanicolaou smear with Ginny Guzmán MD Onset: 2018 positive human papillomavirus deoxyribonucleic acid test Social History Type Date Description Comments Sex Unknown Tobacco Use Start: Unknown Patient has never smoked Smoking Status Reviewed: 12/18/19 Patient has never smoked Allergies, Adverse Reactions, Alerts Description No Known Drug Allergies Medications Active Medications SIG Qnty Indications Ordering Date Provider Nuvaring insert 1 ring 1units Hilda Rodriguez 11/05/2017 vaginally for 3 Robby, CNM 0.12-0.015mg/24HR weeks, remove for 1 Ring week Flintstones take 2 by mouth 60units Carol Phelps, 06/19/2016 Complete daily CNM 60mg Chewtabs Colace take 1 by mouth 30caps Eran Garcias, 06/19/2016 100mg daily as needed Capsules constipation Medications Administered in Office Medication SIG Qnty Indications Ordering Provider Date PT SCRN Tbco Id as Non User Melissa Talamantes MD 08/31/2018 Injection PT SCRN Tbco Id as Non User Ginny Guzmán MD 01/04/2018 Injection Immunizations CPT Code Status Date Vaccine Lot # [id number] Given 11/12/2016 Tetnus, Diptheria Toxoids And Acellular Pertussis, [id number] PT > 7Yrs Old Vital Signs Date Vital Result Comment 12/18/2019 1:02pm BP Systolic 134 mmHg BP Diastolic 86 mmHg Height 63 inches 5'3" Weight 182.00 lb BMI (Body Mass Index) 32.2 kg/m2 Last Menstrual Period [id number] 8 Parity 5 08/31/2018 3:06pm BP Systolic 120 mmHg BP Diastolic 78 mmHg Height 63 inches 5'3" Weight 167.00 lb BMI (Body Mass Index) 29.6 kg/m2 Last Menstrual Period [id number] 8 Parity 5 Results Test Acquired Date Facility Test Result H/L Range Note Laboratory test 12/18/2019 [facility] Cytology <pending> finding [place] [id number] [phone] Procedures Description No Information Available Medical Devices Description No Information Available Encounters Description No Information Available Assessments Date Code Description Provider 12/18/2019 Z01.419 Encounter for gynecological examination Ginny Guzmán MD (general) (routine) without abnormal findings 12/18/2019 K59.00 Constipation, unspecified Ginny Guzmán MD Plan of Treatment No Information Available Functional Status Description No Information Available Mental Status Description No Information Available Referrals Description No Information Available
--- NOTE | 2019-12-27 08:14 | ED ---
Abdominal Pain/Female - HPI Summary HPI Summary: This patient is a 34 year old female presenting to [facility] with a chief complaint of LUQ pain and blood in stool for 3 weeks. She states she has been seen here an UC for these symptoms. She states pain increased after eating. She describes her stool as black stool. She states at rest her pain is a 7/10 in severity. She states a Hx of cholecystectomy. She states her last normal BM was three weeks ago. She denies dysuria and hematuria. - History of Current Complaint Chief Complaint: EDAbdPain Stated Complaint: ABD PAIN, BLOOD IN STOOL Time Seen by Provider: 12/27/19 08:04 Hx Obtained From: Patient Hx Last Menstrual Period: 10/18/20 Onset/Duration: Lasting Hours Pain Intensity: 7 Pain Scale Used: 0-10 Numeric Location: Discrete At: LUQ Allergies/Adverse Reactions: Allergies Allergy/AdvReac Type Severity Reaction Status Date / Time Iodinated Contrast Media Allergy Hives Verified 12/27/19 07:59 [Iodinated Contrast- Oral and IV Dye] iohexol Allergy Hives Verified 12/27/19 07:59 Home Medications: Home Medications Etonogest/Eth.estradiol (Nf) [Nuvaring Vaginal Ring] 1 each VAGINAL MONTHLY [History Confirmed 12/27/19] Multivitamins/Minerals TAB* [Theragran/minerals TAB*] 1 tab PO DAILY 12/27/19 [ History Confirmed 12/27/19] Pantoprazole TAB * [Protonix TAB*] 40 mg PO DAILY #15 tab 12/27/19 [Rx] busPIRone TAB* [Buspar TAB*] 10 mg PO BID 12/27/19 [History Confirmed 12/27/19] PMH/Surg Hx/FS Hx/Imm Hx Endocrine/Hematology History: Denies: Hx Anticoagulant Therapy, Hx Blood Disorders, Hx Diabetes, Hx Thyroid Disease Cardiovascular History: Denies: Hx Aneurysm, Hx Hypertension Respiratory History: Denies: Hx Asthma, Hx Chronic Obstructive Pulmonary Disease (COPD) GI History: Denies: Hx Crohn's Disease, Hx Gastrointestinal Bleed, Hx Hiatal Hernia, Hx Irritable Bowel, Hx Ulcer Sensory History: Denies: Hx Legally Blind, Hx Deafness Opthamlomology History: Denies: Hx Legally Blind Psychiatric History: Reports: Hx Anxiety - Surgical History Surgery Procedure, Year, and Place: GALL BLADDER REMOVED 2014 Infectious Disease History: No Infectious Disease History: Denies: Hx Clostridium Difficile, Hx Hepatitis, Hx Human Immunodeficiency Virus (HIV), Hx of Known/Suspected MRSA, Hx Shingles, Hx Tuberculosis, Hx Known/ Suspected VRE, Hx Known/Suspected VRSA, History Other Infectious Disease, Traveled Outside the [place] in Last 30 Days - Family History Known Family History: Positive: Cardiac Disease, Hypertension, Diabetes Family History: neg: IBS, Crohns - Social History Alcohol Use: None Alcohol Amount: not recently Hx Substance Use: No Substance Use Type: Reports: None Hx Tobacco Use: No Smoking Status (MU): Never Smoked Tobacco Review of Systems Negative: Fever Positive: Abdominal Pain, Other - Black stool Negative: dysuria, hematuria All Other Systems Reviewed And Are Negative: Yes Physical Exam - Summary Physical Exam Summary: Constitutional: Well-developed, Well-nourished, Alert. (-) Distressed Skin: Warm, Dry HENT: Normocephalic; Atraumatic Eyes: Conjunctiva normal Neck: Musculoskeletal ROM normal neck. (-) JVD, (-) Stridor, (-) Tracheal deviation Cardio: Rhythm regular, rate normal, Heart sounds normal; Intact distal pulses; The pedal pulses are 2+ and symmetric. Radial pulses are 2+ and symmetric. (-) Murmur Pulmonary/Chest wall: Effort normal. (-) Respiratory distress, (-) Wheezes, (-) Rales Abd: Soft, Epigastric/LUQ tenderness, (-) Distension, (-) Guarding, (-) Rebound Musculoskeletal: (-) Edema Lymph: (-) Cervical adenopathy Neuro: Alert, Oriented x3 Psych: Mood and affect Normal Rectal: No gross blood or black stool noted,. No hemorrhoids. Triage Information Reviewed: Yes Vital Signs On Initial Exam: Initial Vitals Temp Pulse Resp BP Pulse Ox 97.8 F 79 16 122/87 100 12/27/19 07:56 12/27/19 07:56 12/27/19 07:56 12/27/19 07:56 12/27/19 07:56 Vital Signs Reviewed: Yes Procedures - Sedation Patient Received Moderate/Deep Sedation with Procedure: No Diagnostics - Vital Signs Vital Signs Temp Pulse Resp BP Pulse Ox 12/27/19 07:56 97.8 F 79 16 122/87 100 - Laboratory Result Diagrams: 12/27/19 08:32 12/27/19 08:32 Lab Statement: Any lab studies that have been ordered have been reviewed, and results considered in the medical decision making process. - CT Abd/Pel CT Interpretation Completed By: Radiologist Summary of CT Findings: No evidence of obstructive uropathy. No abnormal masses or fluid collection is noted on this noncontrast Ct of the abdomen and pelvis. ED Provider has reviewed this report. Abdominal Pain Fem Course/Dx - Course Course Of Treatment: This patient is a 34 year old female presenting to [facility] with a chief complaint of LUQ pain and blood in stool for 3 weeks. She states she has been seen here an UC for these symptoms. She states pain increased after eating. She describes her stool as black stool. Consulted with Dr. Mere Lam, GI, who recommended discharge and followup. Labs were unremarkable for Hgb 10.9 L, Hct 32 L, ESR 45 H, calcium 8.5 L. Patient administered NS, Maalox, Protonix, and Xylocaine in the ED. Plan for discharge was discussed with the patient and she understands and agrees. VSS, H&H within normal limits, patient' s signs and symptoms consistent with probable gastritis/upper GI bleed. Patient given prescription for Protonix and GI referral for further evaluation and possible upper endoscopy. - Diagnoses Provider Diagnoses: Upper GI bleed Discharge ED - Sign-Out/Discharge Documenting (check all that apply): Patient Departure - Discharge - Discharge Plan Condition: Stable Disposition: HOME Prescriptions: Pantoprazole TAB * [Protonix TAB*] 40 mg PO DAILY #15 tab Patient Education Materials: Gastrointestinal Bleeding (ED) Referrals: Crhisten Amaya MD [Medical Doctor] - 2 Days Additional Instructions: Follow up with GI. Return to ED with worsening symptoms. - Billing Disposition and Condition Condition: STABLE Disposition: Home - Attestation Statements Document Initiated by Tyree: Yes Documenting Scribe: Kasi Soler Provider For Whom Tyree is Documenting (Include Credential): Francis Peterson DO Scriblobito Attestation: Kasi Siddiqui scribed for Francis Peterson DO on 12/27/19 at 1435. Scribe Documentation Reviewed: Yes Provider Attestation: The documentation as recorded by the Kasi baltazar accurately reflects the service I personally performed and the decisions made by me, Francis Peterson, DO Status of Scribe Document: Viewed
[2019-12-27] MEDS ORDERED: NS 0.9% 1000 ML** 1,000 ML IV ONE (08:19)
[2019-12-27 08:57] LABS: ABS Eosinophils 0.1 10^3/ul (0-0.6); ABS Lymphocytes 2.1 10^3/ul (1.0-4.8); ABS Monocytes 0.3 10^3/ul (0-0.8); ABS Neutrophils 2.3 10^3/ul (1.5-7.7); Eosinophil % 1.5 %; Hematocrit 32 % (35-47); Hemoglobin 10.9 g/dL (12.0-16.0); Lymphocyte % 44.2 %; Mean Corpuscular HGB Conc 34 g/dL (31-36); Mean Corpuscular Hemoglobin 28 pg (27-31); Mean Corpuscular Volume 82 fL (80-97); Mean Platelet Volume 8.4 fL (7.4-10.4); Platelet Count 246 10^3/uL (150-450); Red Blood Count 3.94 10^6 /uL (3.70-4.87); Red Cell Distribution Width 13 % (10-15); White Blood Count 4.9 10^3/uL (3.5-10.8)
[2019-12-27 09:09] LABS: ALT 16 U/L (7-52); AST 17 U/L (13-39); Albumin 3.7 g/dL (3.2-5.2); Albumin/Globulin Ratio 1.1 (1-3); Alkaline Phosphatase 74 U/L (34-104); Anion Gap 5 mmol/L (2-11); BUN/Creatinine Ratio 11.3 (8-20); Blood Urea Nitrogen 8 mg/dL (6-24); C Reactive Protein 6.44 mg/L (<8.01); CO2 Carbon Dioxide 25 mmol/L (22-32); Calcium 8.5 mg/dL (8.6-10.3); Chloride 107 mmol/L (101-111); EGFR Non-African American 94.2 (>60); Globulin 3.3 g/dL (2-4); Glucose 85 mg/dL (70-100); Potassium 3.8 mmol/L (3.5-5.0); Sodium 137 mmol/L (135-145)
[2019-12-27 09:15] LABS: HCG Pregnancy < 0.60 mIU/mL
[2019-12-27] MEDS ORDERED: Pantoprazole IV* 40 MG IV ONE (09:40)
[2019-12-27] MEDS ORDERED: Lidocaine 2% VISCOUS* 15 ML UDC PO ONE (09:40)
[2019-12-27] MEDS ORDERED: Al Hydrox/Mg Hydrox/Simet LIQ* 30 ML UDC PO ONE (09:40)
[2019-12-27 10:10] LABS: Erythrocyte Sed Rate 45 mm/Hr (0-19)
[2019-12-27 10:34] VITALS: BP 130/95
[2019-12-27 10:50] LABS: % Iron Saturation 11 % (15-55); Iron 49 ug/dL (50-212); Total Iron Binding Capacity 434 mcg/dL (250-450); Transferrin 310 mg/dL (203-362)
== END 2019-12-27 10:48 | disposition home or self-care (01) ==
LOC: ED 07:54
DX: K92.2 Gastrointestinal hemorrhage, unspecified (principal); R10.12 Left upper quadrant pain; Z90.49 Acquired absence of other specified parts of digestive tract; Z91.041 Radiographic dye allergy status
CPT/HCPCS: 36415; 74176; 80053; 82270; 83540; 83550; 84702; 85025; 85652; 86140; 96361; 96374; 99283; A9270-GY

== ENCOUNTER 2020-01-22 01:36 | Emergency (ER) | payer OTHER ==
--- NOTE | 2020-01-22 02:22 | ED ---
Influenza-Like Illness - HPI Summary HPI Summary: 34 year old female presents to the ED with a chief complaint of influenza-like symptoms starting 4 days ago on 01/17/20. She states she did get her flu shot. Patient reports chest tightness, fatigue, chills, throat tightness, and sticky white sputum. She feels "like her throat is getting tighter." Patient has not had a other she has not checked her temperature. Denies vomiting or diarrhea. She reports being outside often lately, but she has not traveled or been exposed to anyone with COVID-19. Has not been taking anything [id number] for her symptoms. - History of Current Complaint Chief Complaint: EDWeakness Time Seen by Provider: 01/22/20 01:53 Hx Obtained From: Patient Onset/Duration: Gradual Onset, Lasting Days, Still Present, Worse Since - 01/16 Severity: Mild Associated Signs & Symptoms: Sore Throat - Feels tight throat and chest, fatigue , chills, white sticky sputum - Allergy/Home Medications Allergies/Adverse Reactions: Allergies Allergy/AdvReac Type Severity Reaction Status Date / Time Iodinated Contrast Media Allergy Hives Verified 01/22/20 01:53 [Iodinated Contrast- Oral and IV Dye] iohexol Allergy Hives Verified 01/22/20 01:53 PMH/Surg Hx/FS Hx/Imm Hx Endocrine/Hematology History: Denies: Hx Anticoagulant Therapy, Hx Blood Disorders, Hx Diabetes, Hx Thyroid Disease Cardiovascular History: Denies: Hx Aneurysm, Hx Hypertension Respiratory History: Denies: Hx Asthma, Hx Chronic Obstructive Pulmonary Disease (COPD) GI History: Denies: Hx Crohn's Disease, Hx Gastrointestinal Bleed, Hx Hiatal Hernia, Hx Irritable Bowel, Hx Ulcer Sensory History: Denies: Hx Legally Blind, Hx Deafness Opthamlomology History: Denies: Hx Legally Blind Psychiatric History: Reports: Hx Anxiety - Surgical History Surgery Procedure, Year, and Place: GALL BLADDER REMOVED 2013 Infectious Disease History: No Infectious Disease History: Denies: Hx Clostridium Difficile, Hx Hepatitis, Hx Human Immunodeficiency Virus (HIV), Hx of Known/Suspected MRSA, Hx Shingles, Hx Tuberculosis, Hx Known/ Suspected VRE, Hx Known/Suspected VRSA, History Other Infectious Disease, Traveled Outside the [place] in Last 30 Days - Family History Known Family History: Positive: Cardiac Disease, Hypertension, Diabetes Family History: neg: IBS, Crohns - Social History Alcohol Use: None Alcohol Amount: not recently Hx Substance Use: No Substance Use Type: Reports: None Hx Tobacco Use: No Smoking Status (MU): Never Smoked Tobacco Review of Systems - ROS Summary Review of Systems Summary: No home medications on record. Positive: Chills, Fatigue Positive: Sore Throat - tightness Positive: Chest Pain - tightness Positive: Other - white sputum sticky Negative: Diarrhea, Nausea All Other Systems Reviewed And Are Negative: Yes Physical Exam - Summary Physical Exam Summary: General: Well-developed, Well-nourished female. No acute distress. HEENT: Normocephalic, Atraumatic. Eyes: Conjuctiva normal, PERRL. Ears: TMs within normal limits. Nares: (-) discharge, (-) erythema. Oropharynx: Clear, mucous membranes moist, (-) exudates.Erythema. Neck: Soft, FROM, (-) lymphadenopathy, (-) thyromegaly, (-) JVD. Cardiovascular: Normal sinus rhythm, (-) murmur. Lungs: Clear to auscultation bilaterally (-) wheezes, (-) rales, (-) rhonchi. Abdomen: Soft, non-tender, non-distended, (-) organomegaly, normal bowel sounds. Back: (-) CVA tenderness Extremities: No edema. Skin: Warm, dry, (-) rash. Neuro: Alert and oriented x3, no focal deficits. Psychiatric: Mood normal, affect normal. Triage Information Reviewed: Yes Vital Signs On Initial Exam: Initial Vitals Temp Pulse Resp BP Pulse Ox 98.7 F 97 19 120/92 98 01/22/20 01:47 01/22/20 01:47 01/22/20 01:47 01/22/20 01:47 01/22/20 01:47 Vital Signs Reviewed: Yes Procedures - Sedation Patient Received Moderate/Deep Sedation with Procedure: No Diagnostics - Vital Signs Vital Signs Temp Pulse Resp BP Pulse Ox 01/22/20 01:47 98.7 F 97 19 120/92 98 - Laboratory Lab Statement: Any lab studies that have been ordered have been reviewed, and results considered in the medical decision making process. Flu Symptom Course/Dx - Course Course Of Treatment: 34-year-old female presents from home with acute illness. She states for the last 3-4 days she has had a sensation of phlegm in her throat. Frequently has to try to clear her throat but the phlegm is very sick. Feels very tired and achy. Sometimes chills. No high fevers. No cough. No vomiting or diarrhea. Patient is afebrile with no significant findings on physical exam. Discharged home with URI. Advised Mucinex, plenty of fluids, rest and humidified air. Follow-up with PCP. Follow-up sooner for any worsening symptoms. - Diagnoses Provider Diagnoses: URI (upper respiratory infection) Discharge ED - Sign-Out/Discharge Documenting (check all that apply): Patient Departure - discharge home - Discharge Plan Condition: Stable Disposition: HOME Patient Education Materials: Upper Respiratory Infection (ED) Referrals: [facility] [Outside] Additional Instructions: Follow up with [facility] in 2-3 days. Please take Mucinex for your symptoms. Return to the ER if you experience new or worsened symptoms. - Billing Disposition and Condition Condition: STABLE Disposition: Home - Attestation Statements Document Initiated by Beverleyibe: Yes Documenting Scribe: Esteban Medley Provider For Whom [facility]Tree is Documenting (Include Credential): Dr. Hailey Du Scribe Attestation: IEsteban, scribed for Dr. Hailey Du on 01/22/20 at 0302. Scribe Documentation Reviewed: Yes Provider Attestation: The documentation as recorded by the Esteban baltazar accurately reflects the service I personally performed and the decisions made by me, Dr. Hailey Du Status of Scribe Document: Viewed
--- OUTSIDE RECORDS SUMMARY | 2020-01-22 02:38 | XMS REPORT | Continuity of Care Document ---
:1985 External Reference #:[id number] Author Name Alex Nielsen MD (transmitted by agent of provider Bernadette Cisneros) Address [address] [facility] [place] [address] Care Team Providers Name Role Phone [facility] - Care Team Information Autopsy Assistant Mental Health Alex Nielsen MD - Student in an Care Team Information Autopsy Assistant Organized Health Care Education/Training Program Problems Active Problems Provider Date Adjustment disorder with depressed Nata Ortiz M.D. Onset: 07/28/2013 mood Obesity Nata Ortiz M.D. Onset: 07/28/2013 Amenorrhea Stefan Waters M.D. Onset: 01/17/2015 Abnormal cervical Papanicolaou smear Kofi Diaz M.D.,[facility] Onset: with positive human papillomavirus deoxyribonucleic [...] drop each eye 8ml H53.30 Zsofia Rich, FIELD NURSE CASE MANAGER 08/30/2019 0.4-0.3% twice daily for Solution dry eyes Multi Vitamin 1 by mouth every Unknown Tablets day History Medications No Active Medications Unknown 08/30/2019 - 08/30/2019 Hydroxyzine HCL take one tablet 30tabs F41.1 Zsofia Rich, 08/30/2019 - 25mg by mouth 2 x FIELD NURSE CASE MANAGER Unknown Tablets daily as needed Medications Administered in Office Medication SIG Qnty Indications Ordering Provider Date PPD Injection Nurse Visit Elbert 01/22/2015 PPD Injection Nurse Visit Fallentimber 01/18/2015 Immunizations CPT Code Status Date Vaccine Lot # [id number] Given 09/24/2015 Influenza Virus Vaccine, Quadrivalent, Split, [id number] Preservative Free [id number] Given 07/28/2013 Flu Vaccine Split Virus Preservative Free For [id number] Indiv [id number] Older Vital Signs Date Vital [...] Result H/L Range Note Laboratory test 12/25/2019 [facility] TSH <pending> finding [address] ([place] [address] Stim Horm) [phone] Laboratory test 09/27/2019 [facility] Troponin-I 0.00 ng/mL < 0.[address] (TnI) [place] [address] [phone] Comp Metabolic 09/27/2019 [facility] Sodium 137 mmol/L Normal 135-[address] [place] [address] [phone] Potassium 3.6 mmol/L Normal 3.5-5.0 Chloride 105 [...] Egfr 107.0 >60 2 Laboratory test 09/27/2019 [facility] Troponin-I 0.00 <0.03 [address] (TnI) ng/[place] [address] [phone] CBC Auto Diff 09/27/2019 [facility] White Blood 6.9 Normal 3.5 -10.[address] Count 10^3/[place] [address] [phone] Red Blood Count 4.55 10^6/uL Normal 3.70-4.87 [...] Red Blood Cells % 0.0 Inr/Protime 09/27/2019 [facility] Inr 0.97 Normal 0.82-1.[address] [place] [id number] [phone] 1 Troponin-I testing on Plasma Separator Tubes (PST) has a known false positive rate of 0.20-0.40%. All positive troponins reflex immediately to secondary confirmatory testing. Using the [employer] DxI 800 Access Immunoassay systems, the 99th [...] immediately to secondary confirmatory testing. Using the [employer] DxI 800 Access Immunoassay systems, the 99th percentile upper reference limit was demonstrated to be < 0.03 ng/mL. 4 Standard intensity warfarin therapeutic range: 2.0-3.0 High intensity warfarin therapeutic range: 2.5-3.5 Procedures Date Code Description Status 10/12/2019 [id number] Mammogram Completed Medical Devices Description No Information Available Encounters Type Date Location Provider Dx Diagnosis Office Visit 12/25/2019 [facility] Alex Nielsen, F41.1 Generalized anxiety 10:45a Medicine - Suite MD disorder R F33.1 Major depressive disorder, recurrent, moderate K59.00 Constipation, unspecified Office Visit 12/07/2019 9:[facility] Maria T Vaughan, N64.4 Mastodynia Of [facility] MD Office Visit 09/07/2019 10:30a [facility] Maria T Vaughan, N64.4 Mastodynia Of [facility] MD Office Visit 08/30/2019 2:40p [facility] Internal Alexis Villanueva, N64.4 Mastodynia Medicine - [facility] FIELD NURSE CASE MANAGER F41.1 Generalized anxiety disorder F43.21 Adjustment disorder [...] Maria T Vaughan MD 08/30/2019 N64.4 Mastodynia lAexis Villanueva, 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 Take Buspirone 10 mg one tablet two times a day.Follow up:[address] Gia THOMPSON records from OBGYN.F33.1 Major depressive disorder, recurrent, [...] Date Karen Mathias LCSW Sent [address], [place] [address] [phone] Bala Dorsey MD resent 10/26/19 Sent [address] [place] [id number] [phone] Maria T Vaughan MD Sent 09/07/2019 [address] [facility] [address] [place] [address] [phone] [facility] Sent [address] [place] [address] [phone]
--- OUTSIDE RECORDS SUMMARY | 2020-01-22 02:38 | XMS REPORT | Continuity of Care Document ---
:1985 External Reference #:[id number] Author Problems Active Problems Provider Date Constipation SOHAIL Godinez-Ace Onset: 12/28/2019 Hemorrhage of rectum and anus SOHAIL Godinez-Ace Onset: 12/28/2019 Melena SOHAIL Godinez-Ace Onset: 12/28/2019 Anemia Wendy Carmona PA-Ace Onset: 12/28/2019 Left upper quadrant pain SOHAIL Godinez-Ace Onset: 12/28/2019 Social History Type Date Description Comments Sex Unknown Tobacco Use Start: Unknown Patient has never smoked Smoking Status Reviewed: 12/28/19 Patient has never smoked Allergies, Adverse Reactions, Alerts Active Allergies Reaction Severity Comments Date Contrast Dye 12/28/2019 Medications Active Medications SIG Qnty Indications Ordering Date Provider Linzess 1 by mouth daily 30caps Estevan Glasgow 01/11/2020 290mcg Capsules at least 30min MD Monster before breakfast Peg-3350/Electrolytes by mouth as 4000ml K59.00 Estevan Glasgow 12/28/2019 directed MD Monster 236gm Solution Rec Pantoprazole Sodium 1 by mouth daily 30tabs K92.1 Estevan Glasgow 12/28/2019 at least 30min MD Monster 40mg Tablets DR before breakfast Buspirone HCL N[place], 10mg Harvinder Johnson Tablets Immunizations Description No Information Available Vital Signs Date Vital Result Comment 12/28/2019 11:40am Height 63 inches 5'3" Weight 170.00 lb BP Systolic 130 mmHg BP Diastolic 90 mmHg Heart Rate 83 /min BMI (Body Mass Index) 30.1 kg/m2 Results Test Acquired Date Facility Test Result H/L Range Note Xray 12/27/2019 [facility] [place] Radiology CT Abd/Pel W/O <pending> Procedures Description No Information Available Medical Devices Description No Information Available Encounters Description No Information Available Assessments Date Code Description Provider 12/28/2019 R10.12 Left upper quadrant pain Wendy Carmona PA-C 12/28/2019 D64.9 Anemia, unspecified Wendy Carmona PA-C 12/28/2019 K92.1 Melena Wendy Carmona PA-C 12/28/2019 K62.5 Hemorrhage of anus and rectum Wendy Carmona PA-C 12/28/2019 K59.00 Constipation, unspecified Wendy Carmona PA-C Plan of Treatment Future Appointment(s):01/29/2020 12:30 pm - Estevan Hook MD at [facility]12/28/2019 - TEJA GodinezCR10.12 Left upper quadrant painD64.9 Anemia, qoqhwpdelpcP12.1 MelenaNew Medication: Pantoprazole Sodium 40 mg - 1 by mouth daily at least 30min before svuyiktxxS35.5 Hemorrhage of anus and miuoweC81.00 Constipation, unspecifiedNew Medication:Peg-3350/Electrolytes 236 gm - by mouth as directed Functional Status Description No Information Available Mental Status Description No Information Available Referrals Description No Information Available
--- OUTSIDE RECORDS SUMMARY | 2020-01-22 02:38 | XMS REPORT | Continuity of Care Document ---
:1985 External Reference #:[id number] Author Name Wendy Carmona PA-C Address [address] [place] [address] Problems Active Problems Provider Date Constipation Wendy Carmona PA-C Onset: 12/28/2019 Hemorrhage of rectum and anus Wendy Carmona PA-C Onset: 12/28/2019 Melena Wendy Carmona PA-C Onset: 12/28/2019 Anemia Wendy Carmona PA-C Onset: 12/28/2019 Left upper quadrant pain Wendy Carmona PA-C Onset: 12/28/2019 Social History Type Date Description Comments Sex Unknown Tobacco Use Start: Unknown Patient has never smoked Smoking Status Reviewed: 12/28/19 Patient has never smoked Allergies, Adverse Reactions, Alerts Active Allergies Reaction Severity Comments Date Contrast Dye 12/28/2019 Medications Active Medications SIG Qnty Indications Ordering Date Provider Peg-3350/Electrolytes by mouth as 4000ml K59.00 Estevan DDonavan 12/28/2019 directed MD Monster 236gm Solution Rec Pantoprazole Sodium 1 by mouth daily 30tabs K92.1 Estevan DDonavan 12/28/2019 at least 30min MD Monster 40mg [...] Date Facility Test Result H/L Range Note CBC W/Auto 12/27/2019 [facility] White Blood <pending> Differential(! Count Ser Auto ) CNT RBC Red Blood Count <pending> Hemoglobin Blood <pending> Hematocrit <pending> MCV (Corpuscular Volume) <pending> MCH (Corpuscular Hemoglobin) <pending> MCHC (Corpuscular Hemog Conc) <pending> RDW <pending> Platelet Count Blood Auto CNT <pending> MPV <pending> Lymph% <pending> [place]% <pending> Neutrophil % <pending> Absolute Lymphocytes <pending> Absolute Monocytes <pending> Absolute Neutrophils <pending> CMP(!) 12/27/2019 [facility] Sodium(!) <pending> Potassium(!) <pending> Chloride Serum/Plasma(!) <pending> Carbon Dioxide Ser/Plasm(!) <pending> BUN - Urea Nitrogen(!) <pending> Calcium Ser/Plasma Mass/Vol(!) <pending> Creatinine Serum Mass/Vol(!) <pending> Glucose Serum(!) <pending> BUN/Creatinine Ratio(!) <pending> Albumin Serum/Plasma(!) <pending> Alkaline Phosphatase(!) <pending> Bilirubin Total Mass/Vol(!) <pending> Ast - Sgot <pending> Alt - SGPT <pending> Protein Total <pending> Laboratory test 12/27/2019 [facility] Occult Blood Stool <pending> finding Xray 12/27/2019 [facility] [place] Radiology CT Abd/Pel W/O <pending> Procedures Description [...] 12:30 pm - Estevan Hook MD at [facility]12/28/2019 - Wendy Carmona, PA-CR10.12 Left upper quadrant painD64.9 Anemia, mvpokcgesvlJ19.1 MelenaNew Medication: Pantoprazole Sodium 40 mg - 1 by mouth daily at least 30min before ezgzbpldwE00.5 Hemorrhage of anus and nobhhdJ90.00 Constipation, unspecifiedNew Medication:Peg-3350/Electrolytes 236 gm - by mouth as directed Functional Status Description No Information Available Mental Status Description No Information Available Referrals Description No Information Available
--- OUTSIDE RECORDS SUMMARY | 2020-01-22 02:38 | XMS REPORT | Continuity of Care Document ---
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 Onset: 07/28/2013 mood Obesity Nata Ortiz M.D. Onset: 07/28/2013 Amenorrhea Stefan Waters M.D. Onset: 01/17/2015 Abnormal cervical Papanicolaou smear Kofi Diaz M.D.,[facility] Onset: with positive human papillomavirus deoxyribonucleic [...] Medications SIG Qnty Indications Ordering Date Provider Propranolol HCL take one tablet 14tabs F41.9 Renetta Langston MD 01/11/2020 10mg every 8 hours as Tablets needed for anxiety Linzess Once a day K59.00 Renetta Langston MD 01/11/2020 290mcg Capsules Protonix 1 by mouth every 90tabs K59.00 Renetta Langston MD 01/11/[address] day Nitrofurantoin take 1 capsules 14caps N39.0 Renetta Langston MD 01/11/2020 Macrocrystal every 12 hour 100mg Capsules Colace take one tablet 60caps K59.00 Alex Nielsen, 12/25/2019 100mg Capsules twice a day. Systane Ultra 1 drop each eye 8ml H53.30 Zsofia Rich, 08/30/2019 0.4-0.3% twice daily for [employer] Solution dry eyes Multi Vitamin 1 by mouth every Unknown Tablets day History Medications Buspirone HCL take one tablet 60tabs F41.1 Alex Nielsen, 12/25/2019 - 10mg two times a MD 01/11/2020 Tablets day. No Active Medications Unknown 08/30/2019 - 08/30/2019 Hydroxyzine HCL take one tablet 30tabs F41.1 Zsofia Rich, 08/30/2019 - 25mg by mouth 2 x [employer] Unknown Tablets daily as needed Medications Administered in Office Medication SIG Qnty Indications Ordering Provider Date PPD Injection Nurse Visit [place] 01/22/2015 PPD Injection Nurse Visit [place] 01/18/2015 Immunizations CPT Code Status Date Vaccine Lot # [id number] Given 09/24/2015 Influenza Virus Vaccine, Quadrivalent, Split, [id number] Preservative Free [id number] Given 07/28/2013 Flu Vaccine Split Virus Preservative Free For [id number] Indiv [id number] Older Vital Signs Date Vital Result Comment 01/11/2020 10:37am Height 63 inches 5'3" Heart Rate 84 /min BP Systolic Sitting 126 mmHg BP Diastolic Sitting 80 mmHg Body Temperature 97.5 F O2 % BldC Oximetry 99 % 12/25/2019 10:42am Height 63 inches 5'3" Weight 180.00 lb Heart Rate 84 /min BP Systolic Sitting 121 mmHg BP Diastolic Sitting 81 mmHg Body Temperature 98.1 F O2 % BldC Oximetry 98 % BMI (Body Mass Index) 31.9 kg/m2 Results Test Acquired Date Facility Test Result H/L Range Note Urinalysis Profile 01/11/2020 [facility] Urine Color Yellow [address] [place] [address] [phone] Urine Appearance Clear Urine Specific [place] 1.012 Normal 1.010-1.030 Urine pH 6.0 Normal 5-9 Urine Urobilinogen Negative Negative Urine Ketones Negative Negative Urine Protein Negative Negative Urine Leukocytes Trace Abnormal Negative Urine Blood Negative Negative * * Abnormal Negative 1 Urine Nitrite Negative Negative Urine Bilirubin Negative Negative Urine Glucose Negative Negative Urine White Blood Cell 1+(6-10/hpf) Abnormal Absent Urine Red Blood Cell Trace(0-2/hpf) Absent Urine Bacteria Absent Absent Urine Squamous Epithelial Cell Present Abnormal Absent Laboratory test 12/25/2019 [facility] TSH (Thyroid <pending> finding [address] Stim Horm) [place] [address] [phone] Laboratory test 09/27/2019 [facility] Troponin-I 0.00 ng/mL < 0.[address] (TnI) [place] [address] [phone] Comp Metabolic 09/27/2019 [facility] Sodium 137 mmol/L Normal 135-[address] [place] [address] [phone] Potassium 3.6 mmol/L Normal 3.5-5.0 Chloride 105 [...] Egfr Non- 88.5 >60 Egfr 107.0 >60 3 Laboratory test 09/27/2019 [facility] Troponin-I 0.00 <0.03 [address] (TnI) ng/[place] [address] [phone] CBC Auto Diff 09/27/2019 [facility] White Blood 6.9 Normal 3.5 -10.[address] Count 10^3/[place] [address] [phone] Red Blood Count 4.55 10^6/uL Normal 3.70-4.87 [...] Red Blood Cells % 0.0 Inr/Protime 09/27/2019 [facility] Inr 0.97 Normal 0.82-1.[address] [place] [address] [phone] 1 *Ascorbic acid is present which may interfere with detection of blood. 2 Troponin-I testing on Plasma Separator Tubes (PST) has a known false positive rate of 0.20-0.40%. All positive troponins reflex immediately to secondary confirmatory testing. Using the Immunovaccine DxI 800 Access Immunoassay systems, the 99th percentile upper reference limit was demonstrated to be < 0.03 ng/mL. 3 Because ethnic data is not always readily [...] 15-29 5 Kidney failure <15 (or dialysis) 4 Troponin-I testing on Plasma Separator Tubes (PST) has a known false positive rate of 0.20-0.40%. All positive troponins reflex immediately to secondary confirmatory testing. Using the Immunovaccine DxI 800 Access Immunoassay systems, the 99th percentile upper reference limit was demonstrated to be < 0.03 ng/mL. 5 Standard intensity warfarin therapeutic range: 2.0-3.0 High intensity warfarin therapeutic range: 2.5-3.5 Procedures Date Code Description Status 10/12/2019 [id number] Mammogram Completed Medical Devices Description No Information Available Encounters Type Date Location Provider Dx Diagnosis Office Visit 01/11/2020 [facility] Internal Renetta Langston MD F41.9 Anxiety disorder, 10:40a Medicine - [facility] unspecified K59.00 Constipation, unspecified N39.0 Urinary tract infection, site not specified K12.39 Other oral mucositis (ulcerative) Office Visit 12/25/2019 10:45a [facility] Internal Gregoriastee F41.1 Generalized Luda Nielsen MD anxiety disorder [address] F33.1 Major depressive disorder, recurrent, moderate K59.00 Constipation, unspecified Office Visit 12/07/2019 9:[facility] Maria T Vaughan, N64.4 Mastodynia Of [facility] Office Visit 09/07/2019 10:30a [facility] Maria T Vaughan N64.4 Mastodynia Of [facility] Office Visit 08/30/2019 2:40p [facility] Internal Alexis Villanueva N64.4 Mastodynia Medicine - [facility] [employer] F41.1 Generalized anxiety disorder F43.21 Adjustment disorder with depressed mood H53.30 Unspecified disorder of binocular vision Z23 Encounter for immunization Assessments Date Code Description Provider 01/11/2020 F41.9 Anxiety disorder, unspecified Renetta Langston MD 01/11/2020 K59.00 Constipation, unspecified Renetta Langston MD 01/11/2020 N39.0 Urinary tract infection, site not specified Renetta Langston MD 01/11/2020 K12.39 Other oral mucositis (ulcerative) Renetta Langston MD 12/25/2019 F41.1 Generalized anxiety disorder Alex Nielsen MD 12/25/2019 F33.1 Major depressive disorder, recurrent, moderate Alex Nielsen MD 12/25/2019 K59.00 Constipation, unspecified Alex Nielsen MD 12/07/2019 N64.4 Mastodynia Maria T Vaughan MD 09/07/2019 N64.4 Mastodynia Maria T Vaughan MD 08/30/2019 N64.4 Mastodynia Alexis Villanueva [facility] 08/30/2019 F41.1 Generalized anxiety disorder Alexis Villanueva [facility] 08/30/2019 F43.21 Adjustment disorder with depressed mood Alexis Villanueva [facility] 08/30/2019 H53.30 Unspecified disorder of binocular vision Alexis Villanueva [facility] 08/30/2019 Z23 Encounter for immunization PATEL Calle Plan of Treatment 01/11/2020 - Renetta Langston MDF41.9 Anxiety disorder, unspecifiedNew Medication: Propranolol HCL 10 mg - take one tablet every 8 hours as needed for anxietyComments:You stopped taking BusparPlease do try propranololAlthough you say therapy has not helped previously, it is the only termite treater treatment shown to help people with severe anxiety deal with the hwwucjB65.00 Constipation, unspecifiedNew Medication:Linzess 290 mcg - Once a dayProtonix 40 mg - 1 by mouth every dayComments:Continue to f/u with GIN39.0 Urinary tract infection, site not specifiedNew Medication:Nitrofurantoin Macrocrystal 100 mg - take 1 capsules every 12 hourK12.39 Other oral mucositis (ulcerative)Comments:No clinical evidence of infectionPlease take Vitamin C as needed Functional Status Description No Information Available Mental Status Description No Information Available Referrals Refer to Reason for Referral Status Appt Date Karen Mathias LCSW [facility] [address] [place] [address] [phone] Bala Dorsey MD resent 10/26/[address] [place] [id number] [phone] Maria T Vaughan MD Sent 09/07/2019 [address] [address] [phone] [facility] Sent [address] [place] [address] [phone]
[2020-01-22 02:39] VITALS: BP 120/82
== END 2020-01-22 02:29 | disposition home or self-care (01) ==
LOC: ED 01:36
DX: J06.9 Acute upper respiratory infection, unspecified (principal); J02.9 Acute pharyngitis, unspecified; R07.9 Chest pain, unspecified; R53.83 Other fatigue; F41.9 Anxiety disorder, unspecified
CPT/HCPCS: 99282

== ENCOUNTER 2020-02-19 16:51 | Emergency (ER) | payer OTHER ==
[2020-02-19 17:27] LABS: ABS Basophils 0.1 10^3/ul (0-0.2); ABS Eosinophils 0.1 10^3/ul (0-0.6); ABS Lymphocytes 2.2 10^3/ul (1.0-4.8); ABS Monocytes 0.4 10^3/ul (0-0.8); Eosinophil % 0.9 %; Hematocrit 36 % (35-47); Lymphocyte % 28.4 %; Mean Corpuscular HGB Conc 34 g/dL (31-36); Mean Corpuscular Hemoglobin 28 pg (27-31); Mean Corpuscular Volume 83 fL (80-97); Mean Platelet Volume 8.6 fL (7.4-10.4); Nucleated Red Blood Cells % 0.1; Platelet Count 266 10^3/uL (150-450); Red Blood Count 4.31 10^6 /uL (3.70-4.87); Red Cell Distribution Width 14 % (10-15); White Blood Count 7.9 10^3/uL (3.5-10.8)
[2020-02-19 17:45] LABS: Albumin 4.1 g/dL (3.2-5.2); Albumin/Globulin Ratio 1.3 (1-3); BUN/Creatinine Ratio 10.1 (8-20); C Reactive Protein 2.7 mg/L (<8.01); Calcium 9.3 mg/dL (8.6-10.3); EGFR African American 100.8 (>60); EGFR Non-African American 83.3 (>60); Globulin 3.2 g/dL (2-4); Potassium 3.4 mmol/L (3.5-5.0); Total Bilirubin 0.6 mg/dL (0.2-1.0); Total Protein 7.3 g/dL (6.4-8.9)
[2020-02-19 18:16] VITALS: BP 128/74
[2020-02-19 20:21] LABS: Erythrocyte Sed Rate 24 mm/Hr (0-19)
== END 2020-02-19 18:14 | disposition home or self-care (01) ==
LOC: ED 16:51

== ENCOUNTER 2020-10-09 09:57 | Inpatient (IN) ==
[2020-10-09] MEDS ORDERED: Buffered Lidocaine 1% SYRIN 1 ml INTRADERM ONE ×2 (10:34→11:03)
[2020-10-09] MEDS ORDERED: Betamethasone 6 mg/ml 5 ml VIAL IM ONE (11:03)
[2020-10-09] MEDS ORDERED: Lactated Ringers 1000 ml BAG 1,000 ML IV ONE (11:03)
[2020-10-09] MEDS ORDERED: fentaNYL 100 mcg/2 ml 50 MCG/ML VIAL IV SLOW PU ONE ×2 (11:09→13:31)
[2020-10-09 11:24] LABS: ABS Basophils 0.1 10^3/ul (0-0.2); ABS Eosinophils 0.1 10^3/ul (0-0.6); ABS Lymphocytes 2.1 10^3/ul (1.0-4.8); ABS Monocytes 0.4 10^3/ul (0-0.8); ABS Neutrophils 6.3 10^3/ul (1.5-7.7); Eosinophil % 0.8 %; Hematocrit 32 % (35-47); Hemoglobin 10.7 g/dL (12.0-16.0); Lymphocyte % 23.4 %; Mean Corpuscular HGB Conc 33 g/dL (31-36); Mean Corpuscular Hemoglobin 27 pg (27-31); Mean Corpuscular Volume 82 fL (80-97); Mean Platelet Volume 9.2 fL (7.4-10.4); Platelet Count 282 10^3/uL (150-450); Red Cell Distribution Width 15 % (10-15)
[2020-10-09] MEDS ORDERED: Penicillin G Potassium IV 5,000,000 UNITS in NS 0.9% 100 ml BAG 100 ML IVPB ONE (11:30)
[2020-10-09] MEDS: Lactated Ringers 1000 ml BAG 1,000 ML IV SCH ×2 (11:39→15:28)
[2020-10-09 13:22] LABS: Urine Appearance Cloudy; Urine Bilirubin Negative (Negative); Urine Blood 2+ (Negative); Urine Color Yellow; Urine Glucose Negative (Negative); Urine Ketones 1+ (Negative); Urine Nitrite Negative (Negative); Urine Protein Negative (Negative); Urine Specific Gravity 1.012 (1.010-1.030); Urine Urobilinogen Negative (Negative)
[2020-10-09 13:39] LABS: Urine Bacteria Absent (Absent); Urine Red Blood Cell Trace(0-2/hpf) (Absent); Urine Squamous Epithelial Cell Present (Absent); Urine White Blood Cell 1+(6-10/hpf) (Absent)
[2020-10-09] MEDS: Penicillin G Potassium IV 3,000,000 UNITS in NS 0.9% 100 ml BAG 100 ML IVPB SCH ×3 (15:28→23:32)
[2020-10-09 15:36] LABS: Urine Benzodiazepine Screen None Detected (None Detect); Urine Cannabinoids Screen None Detected (None Detect); Urine Opiates Screen None Detected (None Detect)
[2020-10-09] MEDS ORDERED: Morphine 10 MG/ML VIAL (1 ml) IV ONE (16:17)
[2020-10-09] MEDS ORDERED: Promethazine INJ(RESTRICTED) 25 MG/ML 1 ml VIAL IV PRN (16:19)
[2020-10-10] MEDS: Penicillin G Potassium IV 3,000,000 UNITS in NS 0.9% 100 ml BAG 100 ML IVPB SCH ×4 (03:35→15:18)
[2020-10-10] MEDS ORDERED: Betamethasone 6 mg/ml 5 ml VIAL IM ONE (11:20)
[2020-10-10] MEDS ORDERED: Oxytocin in LR 20 UNITS/1,000 ML BAG IVPB SCH ×2 (17:00→20:00)
[2020-10-10] MEDS ORDERED: fentaNYL 100 mcg/2 ml 50 MCG/ML VIAL IV SLOW PU PRN (18:23)
[2020-10-10] MEDS ORDERED: Witch Hazel PAD JAR TOPICAL PRN (19:04)
[2020-10-10] MEDS ORDERED: Lactated Ringers 1000 ml BAG 1,000 ML IV SCH (20:00)
[2020-10-11 08:28] LABS: ABS Lymphocytes 2.1 10^3/ul (1.0-4.8); ABS Monocytes 0.6 10^3/ul (0-0.8); ABS Neutrophils 10.7 10^3/ul (1.5-7.7); Hematocrit 26 % (35-47); Hemoglobin 8.6 g/dL (12.0-16.0); Lymphocyte % 15.7 %; Mean Corpuscular HGB Conc 33 g/dL (31-36); Mean Corpuscular Hemoglobin 27 pg (27-31); Mean Corpuscular Volume 82 fL (80-97); Mean Platelet Volume 9.4 fL (7.4-10.4); Platelet Count 237 10^3/uL (150-450); Red Blood Count 3.15 10^6 /uL (3.70-4.87); Red Cell Distribution Width 15 % (10-15); White Blood Count 13.4 10^3/uL (3.5-10.8)
[2020-10-11] MEDS: Measles, Mumps,Rubella VACC 0.5 ML/VIAL SUBCUT ONE ×2 (19:57→20:47)
[2020-10-12 07:54] VITALS: BP 127/75
== END 2020-10-12 15:34 | disposition home or self-care (01) | DRG 560 ==
LOC: MCHOBOUT 09:57 → MCHOB 11:00
PROVIDERS: ADMIT Midwife; ATTEND Midwife